=== PATIENT | female | born 1950 | race Caucasian/White ===

== ENCOUNTER → 2023-10-27 14:12 | Outpatient (REF) | payer BC, SELFPAY | LOC: WDC 14:12 | PROVIDERS: ATTENDING PHYSICIAN Nurse Practitioner Family | DX: Z12.31 Encounter for screening mammogram for malignant neoplasm of breast (principal); M81.0 Age-related osteoporosis without current pathological fracture | CPT/HCPCS: 77063; 77067; 77080 ==

== ENCOUNTER 2025-02-24 06:01 | Inpatient (IN) | payer BC, SELFPAY ==
[2025-02-23 23:06] VITALS: BP 145/95
[2025-02-23 23:31] VITALS: BMI 28.4
[2025-02-23 23:46] LABS: % Basophils 0.4 % (0-2); % Eosinophils 1.8 % (0-6); % Immature Granulocytes 0.5 % (0-0.5); % Lymphocytes 9.4 % (20.5-51.1); % Monocytes 9.3 % (1.7-9.3); % Neutrophils 78.6 % (42.2-75.2); Absolute Eosinophils 0.2 10^3/uL (0-0.7); Absolute Immature Granulocytes 0.1 10^3/uL (0-0.05); Absolute Neutrophils 8.3 10^3/uL (1.4-6.5); Hematocrit 36.1 % (37.0-47.0); Hemoglobin 12.5 g/dL (12.0-16.0); Mean Corp Hgb Conc. 34.6 g/dL (33.0-37.0); Mean Corpuscular Hgb 30.1 pg (27.0-31.0); Mean Platelet Volume 10.8 fL (7.4-10.4); Nucleated Red Blood Cells % 0 %; Platelet Count 192 10^3/uL (130-400); Red Blood Cell Count 4.15 10^6/uL (4.20-5.40); Red Cell Dist. Width 13.2 % (11.5-14.5); White Blood Cell Count 10.6 10^3/uL (4.8-10.8)
[2025-02-24] VITALS (44 sets, daily range): BP systolic 81–147; BP diastolic 54–125; BMI 27.8
[2025-02-24 00:06] LABS: ALT (SGPT) 123 U/L (0-35); AST (SGOT) 111 U/L (14-36); Albumin 3.3 g/dl (3.5-5.0); Alkaline Phosphatase 114 U/L (38-126); Blood Urea Nitrogen 21 mg/dl (7-17); Calcium 8.3 mg/dl (8.4-10.2); Carbon Dioxide 23 mmol/L (22-30); Chloride 108 mmol/L (98-107); Estimated Creatinine Clearance 67 ml/min; Glucose 113 mg/dl (70-99); Potassium 3.5 mmol/L (3.5-5.1); Sodium 139 mmol/L (135-145); Total Bilirubin 0.9 mg/dl (0.2-1.3); Total Protein 6.4 g/dl (6.3-8.2); eGFR > 60.00
--- NOTE | 2025-02-24 02:09 | ED.GENMED ---
History of Present Illness
<Eddie Chin, DO - Last Filed: 02/26/25 14:06>
General
Chief Complaint: Chest Pain
Source: patient
Exam Limitations: none
Time Seen by Provider: 02/24/25 01:52
History of Present Illness
History of Present Illness:
See MDM
Past History
<Eddie Chin, DO - Last Filed: 02/26/25 14:06>
Past History
ED Past Medical History: Psychiatric
ED Past Surgical History: Orthopedic
Social History
Tobacco: Non-smoker
Alcohol: None
Phy Exam
<Eddie Chin, DO - Last Filed: 02/26/25 14:06>
Physical Exam
Physical Exam:
See MDM
Scores
<Eddie Chin, DO - Last Filed: 02/26/25 14:06>
Heart Score for Chest Pain Patients
STEMI patient?: Not applicable
Course
<Eddie Chin, DO - Last Filed: 02/26/25 14:06>
Orders/Labs/Results
Orders:
Orders
02/23/25 23:17
EKG [Electrocardiogram (*1)] Urgent
Reason for Study: Shortness of Breath
EKG- Treatment ONCE
02/23/25 23:37
Complete Blood Count/With Diff Urgent
Comprehensive Metabolic Panel Urgent
NT-proBNP Urgent
Comment: ADD ON
Troponin I Urgent
02/24/25 02:08
Lorazepam [Ativan] 1 mg IV NOW STA
02/24/25 02:09
CT Chest PE Study Urgent
Comment:
Reason For Exam: SOB
02/24/25 02:28
Alprazolam [Xanax] 1 mg PO ONCE ONE
02/24/25 02:51
Add On- LAB Urgent
Tests Added?: BNP
02/24/25 04:41
Heparin 5,600 units IV NOW STA
Nursing to Place Non Medication Order As Directed
Physician Order: PTT 6 hours after initial start of Heparin infusion
Above order entered?: Yes
02/24/25 04:45
Heparin 85521 Units/250 ml 25,000 units in 250 ml IV PER PROTOCOL
Weight to be used for heparin protocol in kilograms (kg):: 70.3
Protocol:: DVT/PE
PTT Goal Range to be used:: PTT 73 to 111 seconds
Order type:: Initial
INITIAL Infusion Dose (UNITS/KG/hr) & then follow protocol:: 18 units/kg/hr
Infusion Dose in UNITS/hr & then follow protocol (UNITS/hr):: 1,300
INFUSION RATE in mL/hr & then follow protocol (mL/hr):: 13
For DVT/PE algorithm, re-bolus for low PTT?: Yes
PTT less than or equal to 64 seconds:: Re-bolus 80 units/kg (max 10,000units). Increase by 300 units/hr
(+ 3mL/hr)
PTT 64.1 to 72.9 seconds:: Re-bolus 40 units/kg (max 5,000 units). Increase by 100 units/hr
(+ 1mL/hr)
PTT 73 to 111 seconds:: Target Range. No change in rate.
PTT 111.1 to 130.9 seconds:: Decrease rate by 100 units/hr (- 1 mL/hr)
PTT 131 to 199.9 seconds:: HOLD for 1 hr. Then decrease by 200 units/hr (- 2mL/hr)
PTT greater than or equal to 200 seconds:: HOLD for 2 hrs & Notify Provider. Then decrease by 300 units/hr
(- 3mL/hr)
Lab follow-up:: Each change, PTT q6h until 2 consecutive are therapeutic. Then
PTT daily.
02/24/25 04:52
Heparin 5,600 units IV PRN PRN
02/24/25 04:53
Heparin 2,800 units IV PRN PRN
02/24/25 05:00
Flush (0.9% Sodium Chloride) [Flush (Nss)] See Dose Instructions IV PER PROTOCOL
02/24/25 05:10
Admit/Transfer Patient As Directed
Co-Sign Provider:
Level of Care: Inpatient admission
Assign to:: ICU
Physician / Group: Emeka
Diagnosis: PE
Reason for Hospitalization: PE
Expected length of stay greater than two midnights?: Yes
ELOS- Estimated Length of Stay in days: 3
I certify the patient meets the requirements for IP care: Yes
PRN Pain Medication Management As Directed
May give lesser potent ordered pain med per pt: Yes
preference::
Protocol:: Medication orders for pain may be administered in a
manner that supports deferring to patient preference
when the pt is:
- Requesting an ordered lesser potent pain medication.
Least to most potent pain medications are defined
as: acetaminophen < NSAID < tramadol < opioids
(morphine, oxycodone, hydromorphone).
- Requesting a lesser dose of the same medication IF
ORDERED.
- Requesting a less intrusive route of administration
if both routes are prescribed by the provider (PO <
IV).
02/24/25 05:11
Code Status As Directed
Resuscitation Status: Full Code
02/24/25 05:24
PTT Urgent
Comment: Obtain baseline before beginning heparin infusion if not already collected
Prothrombin Time Urgent
Comment: ADD ON
02/24/25 Breakfast
NPO
Allow oral meds: Yes
Allow clear liquids: Sips of Clears
02/24/25 06:18
0.9% Sodium Chloride 1000 ml [Nss] 1,000 ml IV 100 mls/hr
Acetaminophen [Tylenol] 650 mg PO Q4HPRN PRN
Alprazolam [Xanax] 1 mg PO Q6HPRN PRN anxiety
HYDROmorphone [Dilaudid] 0.5 mg IV Q4HPRN PRN
02/24/25 06:18
Echo 2D MMode Doppler [Echo 2D MMode Color/Doppler] Routine
Reason for Study: PE, Pleural Effusions
IRAD CONSULT Urgent
Consulting Provider: Igor Simms
Was physician already notified: Yes
Procedure being ordered, including laterality if applicable: PE Lysis
Acknowledgement that appropriate orders are entered: N/A
PULMONARY CONSULT Routine
Consulting Provider: Aden Conti
Was physician already notified: Yes
Reason for consult: PE
Heparin Protocol- PTT Orders As Directed
PTT per Heparin protocol: -Obtain CBC and baseline PTT - if not already collected.
-Obtain PTT 6 hours from start of infusion. Then, every 6 hours until 2 consecutive
PTT's are therapeutic. Then, PTT Daily.
-With each rate change, obtain PTT every 6 hours until 2 consecutive PTT's are
therapeutic. Then, PTT Daily.
Activity As Directed
Activity Level: Bedrest
EKG with chest pain [ECG as needed] As Directed
ECG as needed for:: Chest Pain
I/O [Intake/ Output] As Directed
Frequency: Per unit guidelines
Notify MD As Directed
Notify physician if: PTT is greater than or equal to 200.
Vital Signs As Directed
Frequency: Per unit guidelines
Weight As Directed
Frequency: Daily
Oxygen Therapy [O2 Therapy] [RESP] Routine
Titrate/Wean O2 to maintain O2 sat greater than (%): 94
02/24/25 06:41
TSH Reflex To Free T4 Routine
Troponin I Q6H
02/24/25 08:00
Pantoprazole [Protonix IV] 40 mg IV DAILY
02/24/25 12:41
Troponin I Q6H
02/24/25 17:34
Troponin I Q6H
02/25/25 05:36
Basic Metabolic Panel IN AM
02/25/25 05:37
Glycohemoglobin (HgbA1c) Routine
02/26/25 05:08
Complete Blood Count/No Diff Q2D
Comment: notify provider: Platelet count < 130,000 or decrease by 50% from baseline
02/28/25 06:00
Complete Blood Count/No Diff Q2D
Comment: notify provider: Platelet count < 130,000 or decrease by 50% from baseline
03/02/25 06:00
Complete Blood Count/No Diff Q2D
Comment: notify provider: Platelet count < 130,000 or decrease by 50% from baseline
03/04/25 06:00
Complete Blood Count/No Diff Q2D
Comment: notify provider: Platelet count < 130,000 or decrease by 50% from baseline
03/06/25 06:00
Complete Blood Count/No Diff Q2D
Comment: notify provider: Platelet count < 130,000 or decrease by 50% from baseline
03/08/25 06:00
Complete Blood Count/No Diff Q2D
Comment: notify provider: Platelet count < 130,000 or decrease by 50% from baseline
03/10/25 06:00
Complete Blood Count/No Diff Q2D
Comment: notify provider: Platelet count < 130,000 or decrease by 50% from baseline
03/12/25 06:00
Complete Blood Count/No Diff Q2D
Comment: notify provider: Platelet count < 130,000 or decrease by 50% from baseline
Abnormal Lab Results
02/23/25 02/24/25
23:37 05:24
RBC 4.15 L 10^6/uL
(4.20-5.40)
Hct 36.1 L %
(37.0-47.0)
MPV 10.8 H fL
(7.4-10.4)
Abs Immat Gran (auto) 0.1 H 10^3/uL
(0-0.05)
Absolute Neuts (auto) 8.3 H 10^3/uL
(1.4-6.5)
Absolute Lymphs (auto) 1.0 L 10^3/uL
(1.2-3.4)
Absolute Monos (auto) 1.0 H 10^3/uL
(0.1-0.6)
Neutrophils % 78.6 H %
(42.2-75.2)
Lymphocytes % 9.4 L %
(20.5-51.1)
PT 14.7 H Sec
(11.4-14.6)
Chloride 108 H mmol/L
(98-107)
BUN 21 H mg/dl
(7-17)
Glucose 113 H mg/dl
(70-99)
Calcium 8.3 L mg/dl
(8.4-10.2)
AST 111 H U/L
(14-36)
ALT 123 H U/L
(0-35)
Troponin I 0.040 H* ng/ml
Albumin 3.3 L g/dl
(3.5-5.0)
02/23/25 23:37
02/23/25 23:37
Vital Signs
Initial and Last Documented VS:
Initial Vital Signs
Temp Pulse Resp BP Pulse Ox
98.4 F 114 20 145/95 95
02/23/25 23:06 02/23/25 23:06 02/23/25 23:06 02/23/25 23:06 02/23/25 23:06
Last Documented Vital Signs
Temp Pulse Resp BP Pulse Ox
97.6 F 89 23 109/71 97
02/26/25 11:56 02/26/25 13:00 02/26/25 12:00 02/26/25 12:00 02/26/25 12:00
<Amina Bansal, DO - Last Filed: 02/24/25 06:55>
Orders/Labs/Results
Orders:
Orders
02/23/25 23:17
EKG [Electrocardiogram (*1)] Urgent
Reason for Study: Shortness of Breath
EKG- Treatment ONCE
02/23/25 23:37
Complete Blood Count/With Diff Urgent
Comprehensive Metabolic Panel Urgent
NT-proBNP Urgent
Comment: ADD ON
Troponin I Urgent
02/24/25 02:08
Lorazepam [Ativan] 1 mg IV NOW STA
02/24/25 02:09
CT Chest PE Study Urgent
Comment:
Reason For Exam: SOB
02/24/25 02:28
Alprazolam [Xanax] 1 mg PO ONCE ONE
02/24/25 02:51
Add On- LAB Urgent
Tests Added?: BNP
02/24/25 04:41
Heparin 5,600 units IV NOW STA
Nursing to Place Non Medication Order As Directed
Physician Order: PTT 6 hours after initial start of Heparin infusion
Above order entered?: Yes
02/24/25 04:45
Heparin 31155 Units/250 ml 25,000 units in 250 ml IV PER PROTOCOL
Weight to be used for heparin protocol in kilograms (kg):: 70.3
Protocol:: DVT/PE
PTT Goal Range to be used:: PTT 73 to 111 seconds
Order type:: Initial
INITIAL Infusion Dose (UNITS/KG/hr) & then follow protocol:: 18 units/kg/hr
Infusion Dose in UNITS/hr & then follow protocol (UNITS/hr):: 1,300
INFUSION RATE in mL/hr & then follow protocol (mL/hr):: 13
For DVT/PE algorithm, re-bolus for low PTT?: Yes
PTT less than or equal to 64 seconds:: Re-bolus 80 units/kg (max 10,000units). Increase by 300 units/hr
(+ 3mL/hr)
PTT 64.1 to 72.9 seconds:: Re-bolus 40 units/kg (max 5,000 units). Increase by 100 units/hr
(+ 1mL/hr)
PTT 73 to 111 seconds:: Target Range. No change in rate.
PTT 111.1 to 130.9 seconds:: Decrease rate by 100 units/hr (- 1 mL/hr)
PTT 131 to 199.9 seconds:: HOLD for 1 hr. Then decrease by 200 units/hr (- 2mL/hr)
PTT greater than or equal to 200 seconds:: HOLD for 2 hrs & Notify Provider. Then decrease by 300 units/hr
(- 3mL/hr)
Lab follow-up:: Each change, PTT q6h until 2 consecutive are therapeutic. Then
PTT daily.
02/24/25 04:52
Heparin 5,600 units IV PRN PRN
02/24/25 04:53
Heparin 2,800 units IV PRN PRN
02/24/25 05:00
Flush (0.9% Sodium Chloride) [Flush (Nss)] See Dose Instructions IV PER PROTOCOL
02/24/25 05:10
Admit/Transfer Patient As Directed
Co-Sign Provider:
Level of Care: Inpatient admission
Assign to:: ICU
Physician / Group: Emeka
Diagnosis: PE
Reason for Hospitalization: PE
Expected length of stay greater than two midnights?: Yes
ELOS- Estimated Length of Stay in days: 3
I certify the patient meets the requirements for IP care: Yes
PRN Pain Medication Management As Directed
May give lesser potent ordered pain med per pt: Yes
preference::
Protocol:: Medication orders for pain may be administered in a
manner that supports deferring to patient preference
when the pt is:
- Requesting an ordered lesser potent pain medication.
Least to most potent pain medications are defined
as: acetaminophen < NSAID < tramadol < opioids
(morphine, oxycodone, hydromorphone).
- Requesting a lesser dose of the same medication IF
ORDERED.
- Requesting a less intrusive route of administration
if both routes are prescribed by the provider (PO <
IV).
02/24/25 05:11
Code Status As Directed
Resuscitation Status: Full Code
02/24/25 05:24
PTT Urgent
Comment: Obtain baseline before beginning heparin infusion if not already collected
Prothrombin Time Urgent
Comment: ADD ON
02/24/25 Breakfast
NPO
Allow oral meds: Yes
Allow clear liquids: Sips of Clears
02/24/25 06:18
0.9% Sodium Chloride 1000 ml [Nss] 1,000 ml IV 100 mls/hr
Acetaminophen [Tylenol] 650 mg PO Q4HPRN PRN
Alprazolam [Xanax] 1 mg PO Q6HPRN PRN anxiety
HYDROmorphone [Dilaudid] 0.5 mg IV Q4HPRN PRN
02/24/25 06:18
Echo 2D MMode Doppler [Echo 2D MMode Color/Doppler] Routine
Reason for Study: PE, Pleural Effusions
IRAD CONSULT Urgent
Consulting Provider: Igor Simms
Was physician already notified: Yes
Procedure being ordered, including laterality if applicable: PE Lysis
Acknowledgement that appropriate orders are entered: N/A
PULMONARY CONSULT Routine
Consulting Provider: Aden Conti
Was physician already notified: Yes
Reason for consult: PE
Heparin Protocol- PTT Orders As Directed
PTT per Heparin protocol: -Obtain CBC and baseline PTT - if not already collected.
-Obtain PTT 6 hours from start of infusion. Then, every 6 hours until 2 consecutive
PTT's are therapeutic. Then, PTT Daily.
-With each rate change, obtain PTT every 6 hours until 2 consecutive PTT's are
therapeutic. Then, PTT Daily.
Activity As Directed
Activity Level: Bedrest
EKG with chest pain [ECG as needed] As Directed
ECG as needed for:: Chest Pain
I/O [Intake/ Output] As Directed
Frequency: Per unit guidelines
Notify MD As Directed
Notify physician if: PTT is greater than or equal to 200.
Vital Signs As Directed
Frequency: Per unit guidelines
Weight As Directed
Frequency: Daily
Oxygen Therapy [O2 Therapy] [RESP] Routine
Titrate/Wean O2 to maintain O2 sat greater than (%): 94
02/24/25 06:41
TSH Reflex To Free T4 Routine
Troponin I Q6H
02/24/25 08:00
Pantoprazole [Protonix IV] 40 mg IV DAILY
02/24/25 12:41
Troponin I Q6H
02/24/25 17:34
Troponin I Q6H
02/25/25 05:36
Basic Metabolic Panel IN AM
02/25/25 05:37
Glycohemoglobin (HgbA1c) Routine
02/26/25 05:08
Complete Blood Count/No Diff Q2D
Comment: notify provider: Platelet count < 130,000 or decrease by 50% from baseline
02/28/25 06:00
Complete Blood Count/No Diff Q2D
Comment: notify provider: Platelet count < 130,000 or decrease by 50% from baseline
03/02/25 06:00
Complete Blood Count/No Diff Q2D
Comment: notify provider: Platelet count < 130,000 or decrease by 50% from baseline
03/04/25 06:00
Complete Blood Count/No Diff Q2D
Comment: notify provider: Platelet count < 130,000 or decrease by 50% from baseline
03/06/25 06:00
Complete Blood Count/No Diff Q2D
Comment: notify provider: Platelet count < 130,000 or decrease by 50% from baseline
03/08/25 06:00
Complete Blood Count/No Diff Q2D
Comment: notify provider: Platelet count < 130,000 or decrease by 50% from baseline
03/10/25 06:00
Complete Blood Count/No Diff Q2D
Comment: notify provider: Platelet count < 130,000 or decrease by 50% from baseline
03/12/25 06:00
Complete Blood Count/No Diff Q2D
Comment: notify provider: Platelet count < 130,000 or decrease by 50% from baseline
Abnormal Lab Results
02/23/25 02/24/25
23:37 05:24
RBC 4.15 L 10^6/uL
(4.20-5.40)
Hct 36.1 L %
(37.0-47.0)
MPV 10.8 H fL
(7.4-10.4)
Abs Immat Gran (auto) 0.1 H 10^3/uL
(0-0.05)
Absolute Neuts (auto) 8.3 H 10^3/uL
(1.4-6.5)
Absolute Lymphs (auto) 1.0 L 10^3/uL
(1.2-3.4)
Absolute Monos (auto) 1.0 H 10^3/uL
(0.1-0.6)
Neutrophils % 78.6 H %
(42.2-75.2)
Lymphocytes % 9.4 L %
(20.5-51.1)
PT 14.7 H Sec
(11.4-14.6)
Chloride 108 H mmol/L
(98-107)
BUN 21 H mg/dl
(7-17)
Glucose 113 H mg/dl
(70-99)
Calcium 8.3 L mg/dl
(8.4-10.2)
AST 111 H U/L
(14-36)
ALT 123 H U/L
(0-35)
Troponin I 0.040 H* ng/ml
Albumin 3.3 L g/dl
(3.5-5.0)
02/23/25 23:37
02/23/25 23:37
Vital Signs
Initial and Last Documented VS:
Initial Vital Signs
Temp Pulse Resp BP Pulse Ox
98.4 F 114 20 145/95 95
02/23/25 23:06 02/23/25 23:06 02/23/25 23:06 02/23/25 23:06 02/23/25 23:06
Last Documented Vital Signs
Temp Pulse Resp BP Pulse Ox
97.6 F 89 23 109/71 97
02/26/25 11:56 02/26/25 13:00 02/26/25 12:00 02/26/25 12:00 02/26/25 12:00
<Eddie Chin, DO - Last Filed: 02/26/25 14:06>
MDM/Problems Addressed
Differential Diagnosis Includes:
HPI and MDM Narrative:
74-year-old female presenting for evaluation of shortness of breath and chest pressure with exertion. Patient initially thought this was related to recent physical therapy. When she exerts herself, she develops the symptoms but then feels as
though she is having a panic attack. When she takes her anxiety medicine, symptoms do improve somewhat. Blood work done prior to my assessment showing mild troponin elevation. Patient is tachycardic. Given her symptoms, will obtain CT PE. If CT
negative, will admit possible ACS
Physical exam
General: Well appearing and non-toxic
HEENT: protecting airway
Neck: appears supple
CV: No evidence of cyanosis. Tachycardic
Resp: No accessory muscle use
Abd: Non-distended
Extremities: No deformities. No tenderness to calf or thighs
Neuro: alert
Psych: Normal affect
Skin: Intact
Problems Addressed including Acute and Chronic Conditions affecting care:
1. Shortness of breath and chest pain with exertion
Acuity: acute
Prognosis: stable
Details: Given the tachycardia and symptoms, will obtain CT PE
2. [ ]
Acuity: acute
Prognosis: stable
Details:
3. [ ]
Acuity: acute
Prognosis: stable
Details:
4. [ ]
Acuity: acute
Prognosis: stable
Details:
5. [ ]
Acuity:
Prognosis:
Details:
Updates
Differential Diagnosis (but not limited to): Pulmonary embolism, acute coronary syndrome
Testing considered: Chest x-ray
Drug therapy (if applicable): OTC meds, please see d/c instruction regarding Rx drugs
Amount and/or Complexity of Data Reviewed
Clinical info obtained from: Patient
External data reviewed: N/A
Labs I independently reviewed (but not limited to): Elevated troponin
Radiology: N/A
Pulse Ox: not hypoxic
EKG independently reviewed: Sinus tachycardia, normal axis, no STEMI
Product Development: Sinus tachycardia
Critical Care: N/A
Risk of Complication:
Social Determinants of health: Good social support
Discussed with other providers: N/A
Escalation of Care includes Admit/Obs: After being observed in the Emergency Department, pt stable for discharge.
Occasional wrong word or 'sound a like' substitutions may have occurred due to the inherent limitations of voice recognition software. Read the chart carefully and recognize, using context, where substitutions have occurred.
<Amina Bansal DO - Last Filed: 02/24/25 06:55>
*Radiology
Radiology exam reviewed: radiology read reviewed
*Pulse Oximetry
Patient hypoxic: no
*Product Development Interpretation
Rate: normal
Interpretation: normal
Rhythm: sinus
*Critical Care Note
Total Time (30-74mins, 75-104mins- exclusive of procedures): 40
comment:
Critical care statement: A total of 40 minutes of critical care time was provided for this patient. This includes management of unstable vital signs, evaluation of the patient at bedside, reviewing the patient's pertinent medical records, discussion
with consultants, review of old EKGs and review of pertinent medical records. This time with separate from time utilized to perform the aforementioned documented procedures
<Amina Bansal, DO - Last Filed: 02/24/25 06:55>
Update Note
Update Note:
04:45
CAT scan shows large bilateral PEs with right heart strain as well as an element of CHF.
Patient remains hemodynamically stable. No dyspnea.
PERT alert initiated. Awaiting callback from chemist water purification as well as IR.
Will initiate IV heparin bolus and drip and admit to hospitalist service.
04:55
Case discussed with pulmonary. CT reviewed by chemist water purification. Moderate right heart and large central clot, recommends thrombectomy by IR.
05:00
IR aware
ED Attending Note
<Eddie Chin, DO - Last Filed: 02/26/25 14:06>
-
Portions of this chart may have been created with voice recognition software.� Occasional wrong word or��sound alike� substitutions may have occurred due to the inherent limitations of voice recognition software.
Discharge Plan
Departure
Patient Disposition: Admit
Date of Disposition: 02/24/25
Time of Disposition: 04:51
Admit to: ICU
Admit to doctor: Emeka
Presentation/result/management discussed w/ accepting MD/DO: Hospitalist
Condition: Serious
Discharge Problem:
Bilateral PE with right heart strain
Interventions
Interventions:
*General Assessment Last Done: 02/23/25 23:06
*Neglect/Abuse Screening Last Done: 02/23/25 23:06
*ED- Fall Risk Assessment Last Done: 02/24/25 01:36
*Nursing Disposition Last Done: 02/24/25 06:15
ED- Cardiac Assessment Last Done: 02/24/25 01:36
ED-Musculoskeletal Assessment Last Done: 02/24/25 01:36
ED-Psychological Assessment Last Done: 02/24/25 01:36
ED- Pulmonary Assessment Last Done: 02/24/25 01:36
Discharge Date and Time
Discharge Date/Time: 02/24/25 06:20
[2025-02-24] MEDS: XANAX 1 MG PO ×3 (02:33→20:33)
[2025-02-24 04:17] LABS: NT-proBNP 3530 pg/ml
--- NOTE | 2025-02-24 05:14 | HPS.HSE ---
Family Physician
-
Family Physician: TIMMY Hernandez
Chief Complaint
-
SOB
History of Present Illness
Patient is a 74y F with PMH significant for osteoporosis and DJD who presents to ED complaining of SOB. Patient describes recent issues with worsening b/l knee pain and gait dysfunction. She has been followed at [facility] and recently had steroid
injections. She states that she has been staying off of her feet and resting with heating pads for much of her time. One week ago, patient had an episode of palpitations / racing heartbeat. She thought that she must be having an anxiety attack.
She took a dose of alprazolam and her symptoms improved. Over the weekend, she developed pain in the L shoulder and in the R flank areas. This pain was quite severe at times and worse with deep breathing or movement.
Tonight, patient noted that she was short of breath with walking / climbing stairs and she presented to the ED for evaluation.
CT done in the ED shows pulmonary emboli.
Patient denies any prior history of VTE. No recent travel or surgery. No personal history of spontaneous .
She does states that she has a sister who had blood clots. Also has strong family history of colon cancer and lung cancer.
Medical History
Past Medical History
Past Medical History: Reports Other
Additional Past Medical History:
Osteoporosis
DJD
Generalized Anxiety
Past Surgical History: Reports Other
Additional Past Surgical History:
Shoulder Surgery
Sinus Surgery
Social History
Tobacco: Non-smoker
Alcohol: Occasional
Drug: None
Family History
Family History: Cancer (Colon, Lung) and Other (Sister: DVT / PE)
Allergies / Home Medications
Allergies reflects when Allergies were last updated in [facility].
Home Medications with original date entered in [facility]
Allergy/Medication List:
Allergies
Allergy/AdvReac Type Severity Reaction Status Date / Time
Penicillins Allergy Rash Verified 02/24/25 00:40
Home Medications
acetaminophen 500 mg tablet (Tylenol Extra Strength) 500 mg PO PRN PRN pain 08/25/18
alprazolam 1 mg tablet 2 mg PO BID PRN anxiety 08/25/18
aspirin 325 mg tablet 325 mg PO PRN PRN pain 08/25/18
calcium 315 mg (as citrate)-vitamin D3 6.25 mcg (250 unit) tablet (Citracal + Vitamin D Maximum) 1 ea PO BID 08/25/18
ibuprofen 200 mg tablet (Advil) 200 mg PO PRN PRN pain 08/25/18
multivitamin 1 ea PO DAILY 08/25/18
Review of Systems
-
History Source: Patient
A 12 point ROS was completed and negative except as noted: Yes
Constitutional: Reports Fatigue; Denies Fever or Chills
EENT: Denies Sore Throat
Respiratory: Reports Trouble Breathing; Denies Cough
Cardiac: Reports Palpitations; Denies Chest Pain or Syncope
Abdomen/GI: Denies Abdominal Pain, Nausea, Vomiting or Diarrhea
: Reports Flank Pain; Denies Dysuria
Musculoskeletal: Reports Joint Pain; Denies Edema
Neurological: Reports Weakness; Denies Dizzy or Headache
Psych: Denies Depression or Anxiety
Physical Exam
Vital Signs
Vital Signs
Temp Pulse Resp BP Pulse Ox
98.4 F 90 33 108/73 91
02/23/25 23:06 02/24/25 03:32 02/24/25 03:32 02/24/25 03:32 02/24/25 03:32
Physical Exam
General: Other (74y F in no acute distress. Somewhat restless appearing.)
HEENT: Moist mucous membranes and PERRLA
Respiratory: Other (Decreased at both bases.)
Cardiac: S1/S2 and Tachycardia; No Murmur
GI: Soft, Non Tender, Non Distended and Normal Bowel Sounds
Musculoskeletal: No Clubbing, No Cyanosis and Other (Asymmetry of LE with R > L. No calf tenderness.)
Neuro: AO x 3
Laboratory Results
-
02/23/25 23:37
02/23/25 23:37
Laboratory Results
Total Bilirubin 0.9 mg/dl (0.2-1.3) 02/23/25 23:37
AST 111 U/L (14-36) H 02/23/25 23:37
ALT 123 U/L (0-35) H 02/23/25 23:37
Alkaline Phosphatase 114 U/L (38-126) 02/23/25 23:37
Troponin I 0.040 ng/ml H* 02/23/25 23:37
Impression/Plan
-
A/P: Patient is a 74y F with PMH significant for osteoporosis and DJD who presents to ED complaining of SOB.
Submassive Pulmonary Embolism
Right Heart Strain secondary to the above
- Admit to ICU for further evaluation and treatment.
- Large R main thrombosis with evidence of RV strain. Smaller L sided PEs as well.
- IR contacted to evaluate for possible thrombectomy.
- IV heparin for now, supplemental O2, supportive care.
- IVFs support.
- Pulm / CC consulted for additional recommendations.
- Check Echo and LE dopplers in AM.
- Follow serial troponin.
- Follow for clinical improvement.
- This is an apparently unprovoked PE. Will require age-appropriate cancer screenings and further evaluation as an outpatient.
Abnormal LFTs
- Likely passive congestion secondary to R HF / heart strain due to PE.
- Check Echo as noted above.
- Follow for improvement.
Bilateral Pleural Effusions
- Unclear etiology. Echo as noted above.
- Would consider diagnostic / therapeutic thoracentesis after patient stabilized from PE perspective.
- Would hold on any diuresis for now given RV strain pattern / preload dependence.
Osteoporosis
DJD
- Recent complaints of LE weakness / bilateral knee pain.
- Continue pain control as needed.
- PT eval.
- Patient previously on Prolia for osteoporosis - but stopped this some time ago.
Generalized Anxiety
- Continue alprazolam PRN.
Code Status: Full
[2025-02-24] MEDS: HEPARIN 5600 UNITS IV (05:38)
[2025-02-24] MEDS: HEPARIN 25000 UNITS/250 ML IV (05:43)
--- NOTE | 2025-02-24 06:32 | PTCARENOTE ---
assumed care from ED, pt AAOx3, CURTIS, follows commands, anxious, c/o 3/10 middle back pain, sinus tach on the monitor, +pulses, +1 edema to LE, BP 95/79 map 87) lungs coarse B/L throughout, tachypneic, shallow breaths, BSx4 round, pt due to void made
aware of activity restrictions, skin dry and intact, wort on right great toe and bottom of heel on left foot, 20G RFA 20G Lwrist, NS 100ml, Hep 1300 units/13ml. call lantigua within reach, otherwise refer to documentation
[2025-02-24 07:11] LABS: PT 14.7 Sec (11.4-14.6)
--- NOTE | 2025-02-24 07:16 | CON.INTV ---
Consultation
Consultation Request
Date/Time Consultation Requested: 02/24/2025
Date/Time Consultation Performed: 02/24/2025
Requesting Provider: Patel Hendrickson
Performing Provider: Aden Conti
Reason for Consultation: Acute PE
Medical History
-
Chief Complaint: Shortness of breath
History of Present Illness:
Patient is a 74-year-old female who presented to the emergency room complaining of shortness of breath. Patient has known history of osteo arthritis and reports significant bilateral knee pain and ambulatory dysfunction. Recently had steroid
injections at [facility] and lately have been mostly resting and using heating pads. Reported episode of shortness of breath with palpitations about a week ago. She took a dose of Xanax and her symptoms tend to improve. Patient also reported some
bilateral pleuritic discomfort over the weekend. Today patient reported worsening shortness of breath even while walking and decided to present to the emergency room. CT scan was performed which showed bilateral pulmonary embolism and evidence of
right heart strain along with elevated BNP and troponin. PERT team was activated. Discussed case with the ER physician and recommended consideration for catheter directed therapy considering large clot burden, central thrombosis, evidence of right
heart strain along with elevated troponin elevated BNP and borderline blood pressure.
No prior known history of VTE event. No recent travel or major surgery requiring hospitalization.
Past Medical History: Reports Other
Additional Past Medical History:
Osteoporosis
DJD
Generalized Anxiety
Past Surgical History: Reports Other
Additional Past Surgical History:
Shoulder Surgery
Sinus Surgery
Social History
Tobacco: Non-smoker
Alcohol: Occasional
Drug: None
Family History
Family History: Cancer (Colon, Lung) and Other (Sister: DVT / PE)
Allergies / Home Medications
Allergies
Allergy/AdvReac Type Severity Reaction Status Date / Time
Penicillins Allergy Rash Verified 02/24/25 00:40
Home Medications
�Medication �Instructions �Recorded �Confirmed �Last Taken �Type
acetaminophen 500 mg tablet 500 mg PO PRN PRN pain 08/25/18 02/24/25 Unknown History
(Tylenol Extra Strength)
alprazolam 1 mg tablet 2 mg PO BID PRN anxiety 08/25/18 02/24/25 Unknown History
aspirin 325 mg tablet 325 mg PO PRN PRN pain 08/25/18 02/24/25 Unknown History
calcium 315 mg (as 1 ea PO BID 08/25/18 02/24/25 Unknown History
citrate)-vitamin D3 6.25 mcg (250
unit) tablet (Citracal + Vitamin D
Maximum)
ibuprofen 200 mg tablet (Advil) 200 mg PO PRN PRN pain 08/25/18 02/24/25 Unknown History
multivitamin 1 ea PO DAILY 08/25/18 02/24/25 Unknown History
Review of Systems
-
Hematologic/Lymphatic: Other (No new symptoms)
Vitals / Labs / Diagnostic Testing
Vital Signs
Temp Pulse Resp BP Pulse Ox
98.4 F 98 27 112/85 96
02/23/25 23:06 02/24/25 06:30 02/24/25 06:30 02/24/25 06:25 02/24/25 06:30
Lab Data
02/23/25 23:37
02/23/25 23:37
Laboratory Results
02/24/25
05:24
PT 14.7 H
INR 1.10
APTT 27.0
Diagnostic Testing:
Physical Exam
-
HEENT: Normocephalic
Cardiovascular: S1/S2
Respiratory: Clear and Non-Labored Respirations
GI: Soft and Non Distended
Neurology: Awake and Alert
Skin: Warm
General: Comfortable
Assessment
-
#1. Acute submassive pulmonary embolism
- Right heart strain noted, also elevated BNP and troponin. Blood pressure borderline.
- Currently on heparin drip
- PERT team activated, recommend IR guided catheter directed therapies. Await further input from IR service
- Continue to monitor in the ICU
- Avoid aggressive hydration in view of right heart strain
- Levophed as needed to keep MAP above 65
- Supplemental oxygen to keep saturation above 90 to 92%
- Check echocardiogram as well as lower extremity Dopplers
- Event appears to be unprovoked considering no recent travel, or hospitalization. Does report decreased mobility after steroid injection for osteoarthritis but this event warrants further workup particularly age-appropriate cancer screening.
- Mildly elevated AST and ALT, ? Venous hepatic congestion, monitor. Albumin is low normal and INR is normal at 1.1.
#2. B/L pleural effusions, right greater than left
- Unclear etiology, differential diagnosis include related to pulmonary embolism and also congestive heart failure
- Albumin is minimally decreased however BNP is elevated at 3530. Also mild groundglass opacities noted on imaging raising concern of possible concomitant congestive heart failure
- Avoid additional IV fluids, check echocardiogram
- Monitor closely in telemetry
- Depending upon her workup and clinical course might need thoracentesis for fluid evaluation but for now we will target treatment for acute PE
Other medical diagnoses:
- Generalized anxiety
- Osteoporosis
- Degenerative joint disease
- Osteoarthritis
Critical Care time 63 mins -- The patient is admitted for acute critical illness for the treatment of vital organ failure and/or prevention of further life-threatening conditions. Total care includes time spent in review of history, physical exam,
medications, hemodynamic/ventilator parameters, laboratory data, imaging and discussion with house staff, pharmacy, respiratory therapy, business mail entry clerk, and nursing.
[2025-02-24] MEDS: NSS 1000 IV (07:28)
[2025-02-24] MEDS: NSS (PRESERVATIVE FREE) 10 ML IV (07:28)
[2025-02-24] MEDS: PROTONIX IV 40 MG IV (07:28)
[2025-02-24 07:33] LABS: Troponin I 0.041 ng/ml
--- NOTE | 2025-02-24 08:24 | PTCARENOTE ---
Addendum entered by Lilia Keller RN 02/24/25 09:26:
patient attepmted to use bedpan, unable to void on bedpan. bladder scan 343
Original Note:
report received, assessments per work list. fluids d/c per denitrator operator. admission assessment completed. oriented to ICU, call lantigua in reach. patient anxious, sinus tachycardia. denies pain. dyspnea with exertion. orthopnea
[2025-02-24 08:47] LABS: TSH Reflex To Free T4 2.65 uIU/ml (0.47-4.68)
--- NOTE | 2025-02-24 09:40 | PTCARENOTE ---
Echo at bedside. moreland inserted. phone report to [facility]
--- NOTE | 2025-02-24 10:20 | PTCARENOTE ---
transport to [facility] without issue, handoff to IRAD RD
[2025-02-24 10:41] LABS: Magnesium 1.7 mg/dl (1.6-2.3); Phosphorus 3.5 mg/dl (2.5-4.5)
[2025-02-24] MEDS: CATHFLO/ACTIVASE 1000 MG INF CATH ×3 (11:32→20:33)
--- NOTE | 2025-02-24 12:06 | W.PN.IRAD.PR ---
Procedure Note
-
Post pulm arteriography, intravasc pressures, initiation thrombolysis infusion. Mean PA pressure 15 mmHg bilat. Angio in keeping with prev CTA. Catheter positioned R pulm artery. Alteplase 1 mg/hr via infusion catheter. Heparin 500 units/hr via PIV.
No sheath infusion-7 Fr catheter is occlusive in 7 Fr sheath.
[2025-02-24 12:53] LABS: Hematocrit 32.5 % (37.0-47.0); Mean Corp Hgb Conc. 33.8 g/dL (33.0-37.0); Mean Corpuscular Volume 88.6 fL (81.0-99.0); Platelet Count 195 10^3/uL (130-400); Red Blood Cell Count 3.67 10^6/uL (4.20-5.40); Red Cell Dist. Width 13.2 % (11.5-14.5); White Blood Cell Count 9.7 10^3/uL (4.8-10.8)
[2025-02-24 13:04] LABS: APTT 39.2 Sec (23.4-35.0)
--- NOTE | 2025-02-24 13:12 | W.PN.UPDATE ---
Update Note
Progress Note Update
Catheter directed tPA today
Follow-up echo toleration with Dopplers
Continue IV heparin
Hematology evaluation outpatient, age-appropriate cancer screening
Monitor LFTs, most likely congestive hepatopathy
In regards to pleural effusions, monitor, may need thoracentesis
[2025-02-24 13:20] LABS: Troponin I 0.038 ng/ml
--- NOTE | 2025-02-24 13:40 | PTCARENOTE ---
received back from [facility]. right fem sheath in place with alteplase infusing per orders. heparin via forearm IV @500 units. moreland draining yellow urine. received back on 4 liters cannula. patient instructed on activity restrictions per orders.
anxious. medicated with xanax per prn order. ultrasound LE to be completed tomorrow as patient unable to move legs
--- NOTE | 2025-02-24 14:26 | PTCARENOTE ---
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 immediately to patient bedside, legs straightened. restraint applied, right groin site intact, no changes in pulses. call
placed to IR[facility] to inform, spoke with irad rn who spoke with MD, orders received
--- NOTE | 2025-02-24 15:24 | CM ---
Patient out of room in the ICU with present seen at bedside. Patient states that he lives with his in a 2 story home. Patient was independent and working at [facility] [employer] [facility] [employer] prior to admission. Patient PCP is Dr. Chamorro from [facility] and she uses the [facility] in [place]. Per patient plan is for discharge home with no needs.
Plan; home with no need vs home with VN pending physician assessment
--- NOTE | 2025-02-24 17:45 | PTCARENOTE ---
received text from Dr Simms no issue with cxr. knee immobilizer and restraint for patient safety. right groin dressing dry and intact. +distal pulses, confirmed with Doppler. patient slept long period after Xanax. awake and oriented. forgetful.
patient with slight movements arms and head. per patient and spouse this is her baseline. labs sent. patient denies pain. safe environment maintained
[2025-02-24 17:47] LABS: Hematocrit 32.7 % (37.0-47.0); Hemoglobin 10.9 g/dL (12.0-16.0); Mean Corp Hgb Conc. 33.3 g/dL (33.0-37.0); Mean Corpuscular Volume 90.1 fL (81.0-99.0); Mean Platelet Volume 11.1 fL (7.4-10.4); Platelet Count 190 10^3/uL (130-400); Red Blood Cell Count 3.63 10^6/uL (4.20-5.40); Red Cell Dist. Width 13.3 % (11.5-14.5); White Blood Cell Count 9.5 10^3/uL (4.8-10.8)
[2025-02-24 17:54] LABS: INR 1.18; PT 15.5 Sec (11.4-14.6)
[2025-02-24 18:18] LABS: Troponin I 0.045 ng/ml
--- NOTE | 2025-02-24 21:00 | PTCARENOTE ---
Received pt resting in bed, AAOx3. Drowsy but easily arousable. Reports anxiety - PRN xanax given. Denies pain at this time. Must stay flat in bed for the night - pt educated. R knee immobilizer and ankle restraint in place to encourage pt to keep
leg straight. Hourly neurovasc checks ongoing - WNL at this time. R femoral sheath in place with TPA infusing per orders. R FA INT with heparin gtt at 500units/hr. SR on tele, HR 80-90s. BP 90-100/50-60. On 4L NC, spo2 95%. Lungs with crackles
bibasilar. + bowel sounds. NPO. Mitchell draining yellow urine - see I&O. Call lantigua in reach.
[2025-02-25] VITALS (40 sets, daily range): BP systolic 81–130; BP diastolic 50–103; BMI 28.3
[2025-02-25 00:29] LABS: INR 1.32; PT 16.9 Sec (11.4-14.6)
[2025-02-25 00:30] LABS: APTT 33.2 Sec (23.4-35.0)
[2025-02-25] MEDS: DILAUDID 0.5 MG IV (00:31)
[2025-02-25 00:34] LABS: Hematocrit 28.1 % (37.0-47.0); Hemoglobin 9.6 g/dL (12.0-16.0); Mean Corp Hgb Conc. 34.2 g/dL (33.0-37.0); Mean Corpuscular Hgb 30.5 pg (27.0-31.0); Mean Corpuscular Volume 89.2 fL (81.0-99.0); Mean Platelet Volume 11.3 fL (7.4-10.4); Platelet Count 177 10^3/uL (130-400); Red Blood Cell Count 3.15 10^6/uL (4.20-5.40); Red Cell Dist. Width 13.3 % (11.5-14.5); White Blood Cell Count 8.4 10^3/uL (4.8-10.8)
--- NOTE | 2025-02-25 01:07 | PTCARENOTE ---
Pt. resting mostly when undisturbed. C/O low back pain/stiffness from laying in bed all day - pt reports she feels like she needs to stand up and stretch. Re-educated on bedrest, pt understanding. PRN dilaudid given. Repeat labs sent.
--- NOTE | 2025-02-25 01:15 | PTCARENOTE ---
Hgb dropped from 10.9 to 9.6. Orders to contact [facility] precision dyer for Hgb drop >1gm. Dr Simms notified via phone. Orders to monitor for now. No s/s bleeding at this time.
[2025-02-25 05:50] LABS: Hematocrit 31.4 % (37.0-47.0); Hemoglobin 10.5 g/dL (12.0-16.0); Mean Corp Hgb Conc. 33.4 g/dL (33.0-37.0); Mean Corpuscular Hgb 30.3 pg (27.0-31.0); Mean Corpuscular Volume 90.5 fL (81.0-99.0); Mean Platelet Volume 10.8 fL (7.4-10.4); Platelet Count 177 10^3/uL (130-400); Red Blood Cell Count 3.47 10^6/uL (4.20-5.40); Red Cell Dist. Width 13.3 % (11.5-14.5); White Blood Cell Count 9.8 10^3/uL (4.8-10.8)
[2025-02-25 05:59] LABS: INR 1.43; PT 17.9 Sec (11.4-14.6)
[2025-02-25 06:00] LABS: APTT 36.6 Sec (23.4-35.0)
[2025-02-25 06:14] LABS: Blood Urea Nitrogen 13 mg/dl (7-17); Calcium 7.3 mg/dl (8.4-10.2); Carbon Dioxide 21 mmol/L (22-30); Chloride 112 mmol/L (98-107); Estimated Creatinine Clearance 78 ml/min; Glucose 66 mg/dl (70-99); Magnesium 1.7 mg/dl (1.6-2.3); Phosphorus 3.9 mg/dl (2.5-4.5); Potassium 3.4 mmol/L (3.5-5.1); Sodium 140 mmol/L (135-145); eGFR > 60.00
[2025-02-25] MEDS: CATHFLO/ACTIVASE 1000 MG INF CATH (06:27)
--- NOTE | 2025-02-25 07:15 | PTCARENOTE ---
Received patient from shift supervisor. patient is drowsy, arousable, AAOx3. present at bedside. She is on 4L, oxygen saturation 99%. Denies any SOB. She is sinus rhythm on monitor. pressure is low 100s/50s but MAP>65. She is NPO and has
moreland for urine. #7 right groin femoral sheath infusing TPA at 100ml/hr. Will review orders, awaiting time from IR for follow up PE study.
[2025-02-25] MEDS: NSS (PRESERVATIVE FREE) 10 ML IV (07:33)
[2025-02-25] MEDS: PROTONIX IV 40 MG IV (07:33)
--- NOTE | 2025-02-25 08:45 | PTCARENOTE ---
Spoke with IR. Patient's follow up study after noon today.
[2025-02-25 09:46] LABS: Glycohemoglobin (HgbA1c) 5.5 % (4.0-5.6)
[2025-02-25] MEDS: XANAX 0.25 MG PO (10:42)
[2025-02-25] MEDS: KCL ELIXIR 40 MEQ PO (10:42)
--- NOTE | 2025-02-25 11:48 | W.PN.INTV ---
Today's Communication / Plan
Recommendations
- f/u CXR in AM
- Wean oxygen as needed
- Once sheath removed, PT/OT evaluation
Assessment
-
Patient is a 74-year-old female who presented to the emergency room complaining of shortness of breath. Patient has known history of osteo arthritis and reports significant bilateral knee pain and ambulatory dysfunction. Recently had steroid
injections at [facility] and lately have been mostly resting and using heating pads. Reported episode of shortness of breath with palpitations about a week ago. She took a dose of Xanax and her symptoms tend to improve. Patient also reported some
bilateral pleuritic discomfort over the weekend. Today patient reported worsening shortness of breath even while walking and decided to present to the emergency room. CT scan was performed which showed bilateral pulmonary embolism and evidence of
right heart strain along with elevated BNP and troponin. PERT team was activated. Discussed case with the ER physician and recommended consideration for catheter directed therapy considering large clot burden, central thrombosis, evidence of right
heart strain along with elevated troponin elevated BNP and borderline blood pressure.
No prior known history of VTE event. No recent travel or major surgery requiring hospitalization.
02/25: Patient lying flat in the bed, no acute distress. Saturating 99% on 4 L supplemental oxygen. Afebrile, not needing any pressor support. Currently tPA infusing as well as heparin infusing.
#1. Acute submassive pulmonary embolism
- Right heart strain noted, also elevated BNP and troponin. Blood pressure borderline.
- Currently on heparin drip and tPA infusing
- PERT team was activated, s/p IR guided catheter directed thrombolysis 02/24, patient going back to IR suite for evaluation
- Continue to monitor in the ICU
- Avoid aggressive hydration in view of right heart strain
- Levophed as needed to keep MAP above 65
- Supplemental oxygen to keep saturation above 90 to 92%
- Event appears to be unprovoked considering no recent travel, or hospitalization. Does report decreased mobility after steroid injection for osteoarthritis but this event warrants further workup particularly age-appropriate cancer screening.
- Mildly elevated AST and ALT, ? Venous hepatic congestion, monitor. Albumin is low normal and INR is normal.
#2. B/L pleural effusions, right greater than left
- Appear to have improved on follow-up chest x-ray on 02/24. Patient lying flat without any shortness of breath.
- Unclear etiology, differential diagnosis include related to pulmonary embolism and also congestive heart failure
- Albumin is minimally decreased however BNP was elevated at 3530. Also mild groundglass opacities noted on imaging raising concern of possible concomitant congestive heart failure
- Avoid additional IV fluids
- Monitor closely in telemetry
- Depending upon her workup and clinical course might need thoracentesis for fluid evaluation but for now we will target treatment for acute PE
- F/u CXR in AM.
Other medical diagnoses:
- Generalized anxiety
- Osteoporosis
- Degenerative joint disease
- Osteoarthritis
Critical Care time 53 mins -- The patient is admitted for acute critical illness for the treatment of vital organ failure and/or prevention of further life-threatening conditions. Total care includes time spent in review of history, physical exam,
medications, hemodynamic/ventilator parameters, laboratory data, imaging and discussion with house staff, pharmacy, respiratory therapy, specification manager, and nursing.
Subjective Dataa
Subjective Data
Date of Service:
Date of Service: February 25, 2025
Subjective:
Patient comfortably lying flat in bed, no acute distress.
Review of Systems
Genitourinary: Other (Reports backache due to lying in the bed. All 14 systems reviewed and negative except as stated above in the history of present illness.)
Objective Data
Data Reviewed
Vital Signs / I&O / Oxygen:
Vital Signs
Temp Pulse Resp BP Pulse Ox
99.7 F 91 29 98/58 95
02/25/25 11:09 02/25/25 10:30 02/25/25 10:30 02/25/25 10:30 02/25/25 10:30
Intake and Output
02/24/25 02/25/25 02/26/25
06:59 06:59 06:59
Intake Total 2101 / 2206 420 / 420
Output Total 1140 / 1215 180 / 180
Balance 962 / 992 240 / 240
SaO2 95
Nasal Cannula flow liters per 4
minute
Physical Exam
General: Comfortable
HEENT: Normocephalic
Cardiovascular: S1-S2
Respiratory: Clear and Non-Labored Respirations
GI: Soft and Non Distended
Neurology: Awake and Alert
Skin: Warm
Labs/Micro/Reports
Lab Data
02/25/25 05:36
Laboratory Results
02/24/25 02/24/25 02/25/25
12:41 17:34 00:06
PT 15.5 H 16.9 H
INR 1.18 1.32
APTT 39.2 H 29.0 33.2
02/25/25
05:36
PT 17.9 H
INR 1.43
APTT 36.6 H
[2025-02-25 12:21] LABS: Hematocrit 29.5 % (37.0-47.0); Hemoglobin 9.8 g/dL (12.0-16.0); Mean Corp Hgb Conc. 33.2 g/dL (33.0-37.0); Mean Corpuscular Hgb 29.9 pg (27.0-31.0); Mean Corpuscular Volume 89.9 fL (81.0-99.0); Mean Platelet Volume 10.8 fL (7.4-10.4); Platelet Count 170 10^3/uL (130-400); Red Blood Cell Count 3.28 10^6/uL (4.20-5.40); Red Cell Dist. Width 13.2 % (11.5-14.5); White Blood Cell Count 9.6 10^3/uL (4.8-10.8)
[2025-02-25 12:32] LABS: INR 1.33; PT 16.7 Sec (11.4-14.6)
[2025-02-25 12:33] LABS: APTT 27.6 Sec (23.4-35.0)
--- NOTE | 2025-02-25 12:44 | PTCARENOTE ---
Took patient to IR for PE study follow up on monitor. hand off completed with RN
--- NOTE | 2025-02-25 14:18 | W.PN.UPDATE ---
Update Note
Progress Note Update
- PE lysis check with completion of therapy
- Repeat imaging of R PA shows modest angiographic improvement with persistent non-occlusive central thrombus
- Repeat pressures checked without significant change compared to prior (28/4 mm hg).
- Subjectively, patient states that she is feeling better, though hard to say given bedrest
- Infusion stopped and catheter removed.
- Bedrest for two hours, ok to restart heparin/ac per primary
[2025-02-25] MEDS: HEPARIN 25000 UNITS/250 ML IV (14:33)
--- NOTE | 2025-02-25 14:34 | W.PN.HOSP.TC ---
Addendum entered and electronically signed by Waylon Amador MD 02/25/25 17:13:
Pulmonary embolism with Acute Cor pulmonale
Original Note:
Today's Communication/Plan
-
Eliquis tomorrow morning
Sheath removed
CXR in AM
Transfer to Tele
Assessment / Plan
Assessment / Plan
Physical Exam
General: Other (74y F in no acute distress. lyign flat)
HEENT: Moist mucous membranes and PERRLA
Respiratory: Other (Decreased at both bases.)
Cardiac: S1/S2 and Tachycardia; No Murmur
GI: Soft, Non Tender, Non Distended and Normal Bowel Sounds
Musculoskeletal: No Clubbing, No Cyanosis and Other (Asymmetry of LE with R > L. No calf tenderness.)
Neuro: AO x 3
A/P: Patient is a 74y F with PMH significant for osteoporosis and DJD who presents to ED complaining of SOB.
Acute hypoxic respiratory failure
Submassive Pulmonary Embolism
Right Heart Strain secondary to the above
- Catheter directed tPA/5�sheath removed 02/25
�Continue heparin drip
�Transition to Eliquis tomorrow morning
� Echo with no severe RV strain
- This is an apparently unprovoked PE. Will require age-appropriate cancer screenings and further evaluation as an outpatient.
� Follow-up outpatient pulmonary
Abnormal LFTs
- Likely congestive hepatopathy
- Monitor with resuscitation
Hypokalemia
� Monitor and replete
Bilateral Pleural Effusions
- Unclear etiology. Echo as noted above.
- Would hold on any diuresis
- F/u CXR in AM
Osteoporosis
DJD
- Recent complaints of LE weakness / bilateral knee pain.
- Continue pain control as needed.
- PT eval.
- Patient previously on Prolia for osteoporosis - but stopped this some time ago.
Generalized Anxiety
- Continue alprazolam PRN.
Code Status: Full
Anticipated Discharge: 24 - 48 hours
Subjective/Interval History
-
Date of Service: February 25, 2025
No acute events, slightly lethargic/sedated this morning on Xanax
Objective Data
-
Labs:
Laboratory Results
02/25/25 02/25/25 02/25/25
05:36 05:37 12:10
WBC 9.8 9.6
Hgb 10.5 L 9.8 L
Hct 31.4 L 29.5 L
Plt Count 177 170
PT 17.9 H 16.7 H
INR 1.43 1.33
APTT 36.6 H 27.6
Sodium 140
Potassium 3.4 L
Chloride 112 H
Carbon Dioxide 21 L
BUN 13
Creatinine 0.6
Glucose 66 L
Calcium 7.3 L
02/25/25
18:00
WBC Cancelled
Hgb Cancelled
Hct Cancelled
Plt Count Cancelled
PT Cancelled
INR Cancelled
APTT Cancelled
Sodium
Potassium
Chloride
Carbon Dioxide
BUN
Creatinine
Glucose
Calcium
Vital Signs:
Vital Signs
Temp Pulse Resp BP Pulse Ox
99.6 F 96 20 101/64 96
02/25/25 12:40 02/25/25 14:02 02/25/25 14:02 02/25/25 14:02 02/25/25 14:02
I&O
02/24/25 02/25/25 02/26/25
06:59 06:59 06:59
Intake Total 2102 / 2207 630 / 630
Output Total 1140 / 1215 315 / 315
Balance 962 / 992 315 / 315
Review of Systems
-
History Source: Patient
All other systems: Not reviewed unless documented
Data Reviewed
-
CT Scan: Report Reviewed by me
Labs: Labs Reviewed by me
--- NOTE | 2025-02-25 15:08 | PTCARENOTE ---
Sat patient up to 30%,. patient has ordered lunch. regular diet ordered and tele status ordered.
--- NOTE | 2025-02-25 16:31 | CM ---
Discharge POC: Await therapy evaluation and recommendation.
--- NOTE | 2025-02-25 16:33 | PN.CDI ---
CDI
- -
CDI:
Physician Documentation Request
Admit Date: 02/24/25 06:01
Dear Doctor Perry,
Please review the following and provide your response in the progress notes.
Clinical Indicators:
Pt admitted with submassive PE /pleural effusion / Acute Hypoxic Respiratory Failure
Documented per H&P and Progress note 02/25, ' Submassive Pulmonary EmbolismRight Heart Strain secondary to the above...'
ECHO 02/24 ,' Estimated pulmonary artery pressure of 35-40 mmHg.'
Please provide a diagnosis for the above findings:
Pulmonary embolism with Acute Cor pulmonale
Pulmonary Embolism only
Other ( please specify)
Use of terms such as suspected, likely, concern for, or probable (associated with a specific diagnosis that is being evaluated, monitored, or treated as if it exists) are acceptable and can be coded in the inpatient setting, when documented at the
time of discharge.
Thank you,
Marlyn Rivero RN
CDI Specialist
[place] [facility]
Please use your independent medical judgment in providing your response.
[2025-02-25 22:00] LABS: APTT 156.6 Sec (23.4-35.0)
[2025-02-26] VITALS (19 sets, daily range): BP systolic 82–127; BP diastolic 58–87; PULSE 99; O2SAT 95
[2025-02-26 05:27] LABS: Hematocrit 29.5 % (37.0-47.0); Hemoglobin 9.7 g/dL (12.0-16.0); Mean Corp Hgb Conc. 32.9 g/dL (33.0-37.0); Mean Corpuscular Hgb 29.3 pg (27.0-31.0); Mean Corpuscular Volume 89.1 fL (81.0-99.0); Mean Platelet Volume 10.7 fL (7.4-10.4); Platelet Count 192 10^3/uL (130-400); Red Blood Cell Count 3.31 10^6/uL (4.20-5.40); Red Cell Dist. Width 13.3 % (11.5-14.5); White Blood Cell Count 9.6 10^3/uL (4.8-10.8)
[2025-02-26 05:33] LABS: APTT 42.5 Sec (23.4-35.0)
[2025-02-26] MEDS: HEPARIN 5600 UNITS IV (06:04)
[2025-02-26 06:11] LABS: Blood Urea Nitrogen 11 mg/dl (7-17); Calcium 7.8 mg/dl (8.4-10.2); Carbon Dioxide 24 mmol/L (22-30); Chloride 110 mmol/L (98-107); Estimated Creatinine Clearance 78 ml/min; Glucose 96 mg/dl (70-99); Magnesium 1.8 mg/dl (1.6-2.3); Potassium 4.1 mmol/L (3.5-5.1); Sodium 139 mmol/L (135-145); eGFR > 60.00
[2025-02-26] MEDS: PROTONIX IV 40 MG IV (08:21)
[2025-02-26] MEDS: NSS (PRESERVATIVE FREE) 10 ML IV (08:22)
[2025-02-26] MEDS: FLUSH (NSS) 1 FLUSH IV (08:22)
--- NOTE | 2025-02-26 09:00 | PTCARENOTE ---
Rec'd pt at 0730 sleeping. Awakens easily to verbal stimuli and is alert and oriented. Does tend to get sl anxious and worries about the clots in her R leg moving. Aware that she is starting on ELiquis today. Speech is clear. CURTIS. Skin is pink wm
and dry. R groin dressing is D+I. No swelling or bruising noted. Respirs are overall unlabored on 4L nc. BS are sl decreased at the bases otherwise clear. Sats are 95%. Monitor SR. + pulses. +1 R LE edema. Does admit to some intermittent R chest
achiness. Abd is soft with + BS. States she does not have much of an appetite. Denies nausea. Mitchell intact- draining yellow urine. Rec'd pt on IV Heparin at 1400 units/hr via R forearm IV Site. Heparin gtt dc'd at 0830 with plan to give Eliquis at
0930. Repositioned. Call lantigua in reach. Plan of care reviewed with pt and pts who is at the bedside.
--- NOTE | 2025-02-26 09:17 | W.PN.PUL3 ---
Today's Communication / Plan
-
- CT abdomen pelvis for further evaluation considering large lower extremity DVT with iliac involvement
- Wean oxygen as tolerated, increase activity as tolerated
- Transition to Eliquis p.o., outpatient follow-up with pulmonary clinic
Assessment
-
Patient is a 74-year-old female who presented to the emergency room complaining of shortness of breath. Patient has known history of osteo arthritis and reports significant bilateral knee pain and ambulatory dysfunction. Recently had steroid
injections at [facility] and lately have been mostly resting and using heating pads. Reported episode of shortness of breath with palpitations about a week ago. She took a dose of Xanax and her symptoms tend to improve. Patient also reported some
bilateral pleuritic discomfort over the weekend. Today patient reported worsening shortness of breath even while walking and decided to present to the emergency room. CT scan was performed which showed bilateral pulmonary embolism and evidence of
right heart strain along with elevated BNP and troponin. PERT team was activated. Discussed case with the ER physician and recommended consideration for catheter directed therapy considering large clot burden, central thrombosis, evidence of right
heart strain along with elevated troponin elevated BNP and borderline blood pressure.
No prior known history of VTE event. No recent travel or major surgery requiring hospitalization.
#1. Acute submassive pulmonary embolism
- Right heart strain noted, also elevated BNP and troponin. Blood pressure stable
- PERT team was activated, s/p IR guided catheter directed thrombolysis 02/24- 02/25
- Transition back to anticoagulation, heparin switched to Eliquis.
- Continue to wean O2
#2. Large right lower extremity DVT.
- Extensive iliac vein involvement noted
- CT abdomen pelvis for further evaluation for any underlying mass lesion or compression of IVC
#2. B/L pleural effusions, right greater than left
- Appear to have improved on follow-up chest x-ray today. Patient lying flat without any shortness of breath.
- Unclear etiology, differential diagnosis include related to pulmonary embolism and also congestive heart failure
- Albumin is minimally decreased however BNP was elevated at 3530. Also mild groundglass opacities noted on imaging raising concern of possible concomitant congestive heart failure
- Avoid additional IV fluids
- Monitor closely in telemetry
- Depending on patient's blood pressure, will consider gentle diuresis
Other medical diagnoses:
- Generalized anxiety
- Osteoporosis
- Degenerative joint disease
- Osteoarthritis
Discussed with patient's spouse at bedside
Total time spent on this consultation/encounter _48___ minutes which includes review of history, physical exam, medications, laboratory data, personal review of imaging, extensive review of outpatient records, discussion with care team and
respiratory therapy.
Subjective Data
-
Date of Service:
Date of Service: February 26, 2025
Subjective:
Patient comfortably lying in bed in no acute distress.
Review of Systems
Genitourinary: Other (No new symptoms reported)
Objective Data
Data Reviewed
Vital Signs / I&O / Oxygen:
Vital Signs
Temp Pulse Resp BP Pulse Ox
99.0 F 85 27 94/63 96
02/26/25 00:48 02/26/25 06:00 02/26/25 06:00 02/26/25 06:00 02/26/25 06:00
Intake and Output
02/25/25 02/26/25 02/27/25
06:59 06:59 06:59
Intake Total 2102 / 2207 812 / 812
Output Total 1140 / 1215 765 / 765
Balance 962 / 992 47 / 47
SaO2 96
Nasal Cannula flow liters per 4
minute
Physical Exam
General: Comfortable
HEENT: Normocephalic
Cardiovascular: S1-S2 and Peripheral Edema (R> L)
Respiratory: Clear and Non-Labored Respirations
GI: Soft and Non Distended
Neurology: Awake and Alert
Skin: Warm
Labs/Micro/Reports
Lab Data
02/26/25 05:08
02/26/25 05:44
Laboratory Results
02/25/25 02/25/25 02/25/25
12:10 18:00 21:33
PT 16.7 H Cancelled
INR 1.33 Cancelled
APTT 27.6 Cancelled 156.6 H*
02/26/25
05:08
PT
INR
APTT 42.5 H
[2025-02-26] MEDS: XANAX 0.25 MG PO (09:31)
[2025-02-26] MEDS: ELIQUIS 10 MG PO ×2 (09:31→20:26)
--- NOTE | 2025-02-26 09:35 | PTCARENOTE ---
Eliquis given (Per Dr. Zaldivar wanted to wait 1 hr after Heparin gtt stopped). Pt made NPO for CT scan. Somewhat anxious and tearful at the thought of having a CT scan of the abd and worrying that she might have cancer. Support given. Xanax 0.25
mg po given to help relax pt. Call lantigua in reach.
[2025-02-26] MEDS: OMNIPAQUE 50 ML PO (10:07)
--- NOTE | 2025-02-26 10:15 | PTCARENOTE ---
Oral CT contrast started. Mitchell removed at 0945 and PT and OT here to work with pt and assisted pt oob to the chair. at the bedside
--- NOTE | 2025-02-26 12:03 | W.PN.HOSP.TC ---
Today's Communication/Plan
-
Transition to Eliquis this morning
CT imaging to evaluate any iliac involvement
May need to evaluate pleural effusions
Assessment / Plan
Assessment / Plan
Physical Exam
General: Other (74y F in no acute distress. lyign flat)
HEENT: Moist mucous membranes and PERRLA
Respiratory: Other (Decreased at both bases.)
Cardiac: S1/S2 and Tachycardia; No Murmur
GI: Soft, Non Tender, Non Distended and Normal Bowel Sounds
Musculoskeletal: No Clubbing, No Cyanosis and Other (Asymmetry of LE with R > L. No calf tenderness.)
Neuro: AO x 3
A/P: Patient is a 74y F with PMH significant for osteoporosis and DJD who presents to ED complaining of SOB.
Acute hypoxic respiratory failure
Submassive Pulmonary Embolism
Right Heart Strain secondary to the above
Occlusive thrombus of the right lower extremity including right femoral, popliteal, peroneal and posterior tibial veins
- Catheter directed tPA/5�sheath removed 02/25
� Heparin drip transition to Eliquis this morning
� Echo with no severe RV strain
- This is an apparently unprovoked PE. Will require age-appropriate cancer screenings and further evaluation as an outpatient. Assess CT abdomen pelvis
� Follow-up outpatient pulmonary
� Wean O2 as tolerated, anticipate will have to go on oxygen
� CT imaging to evaluate any iliac involvement
Abnormal LFTs
- Likely congestive hepatopathy
- Monitor with resuscitation
Hypokalemia
� Monitor and replete
Bilateral Pleural Effusions
- Unclear etiology. Echo as noted above.
- Would hold on any diuresis, especially with lower blood pressures
- X-ray of pleural effusions, may need to get thoracentesis
Osteoporosis
DJD
- Recent complaints of LE weakness / bilateral knee pain.
- Continue pain control as needed.
- PT eval.
- Patient previously on Prolia for osteoporosis - but stopped this some time ago.
Generalized Anxiety
- Continue alprazolam PRN.
Code Status: Full
Anticipated Discharge: 24 - 48 hours
Subjective/Interval History
-
Date of Service: February 26, 2025
No acute events overnight
Objective Data
-
Labs:
Laboratory Results
02/26/25 02/26/25 02/26/25
05:08 05:44 12:00
WBC 9.6
Hgb 9.7 L
Hct 29.5 L
Plt Count 192
APTT 42.5 H Pending
Sodium 139
Potassium 4.1
Chloride 110 H
Carbon Dioxide 24
BUN 11
Creatinine 0.6
Glucose 96
Calcium 7.8 L
Vital Signs:
Vital Signs
Temp Pulse Resp BP Pulse Ox
97.6 F 85 22 92/76 96
02/26/25 11:56 02/26/25 07:30 02/26/25 07:30 02/26/25 07:30 02/26/25 10:00
I&O
02/25/25 02/26/25 02/27/25
06:59 06:59 06:59
Intake Total 2102 / 2207 812 / 826 135 / 135
Output Total 1140 / 1215 765 / 765 110 / 110
Balance 962 / 992 47 / 61
Review of Systems
-
History Source: Patient
All other systems: Not reviewed unless documented
Data Reviewed
-
CT Scan: Report Reviewed by me
Labs: Labs Reviewed by me
--- NOTE | 2025-02-26 12:30 | PTCARENOTE ---
Pt has tolerated sitting oob in the chair. Does have an occasional dry hacky cough. VS as documented. Has tolerated 2L nc with sats of 95-97%- wanted to keep O2 on as she states it makes her feel more comfortable. Assisted to the bathroom to and pt
stated she voided a small amt of urine. Also had a mod amt of loose bautista stool. Pt finished all of her CT contrast and currently taken for a CT of the ABd as ordered.
--- NOTE | 2025-02-26 13:15 | PTCARENOTE ---
Back in room post CT scan. in the room. Pt for tele -will transfer after pt eats lunch. No other changes.
--- NOTE | 2025-02-26 14:45 | PTCARENOTE ---
Pt at 75% of lunch. Report called to 4 [facility]- pt to go to [facility]. Taken via wheelchair. Prior to transferring pt used the bathroom for mod amt of urine and mod amt of loose bautista stool. Cami care given.
--- NOTE | 2025-02-26 15:21 | PTCARENOTE ---
Received report from Yelena in ICU. Pt arrived to room 406-1 at 1455. Pt AAOx3, describing a general achiness of right side- denying need for pain medication at this time. SHERIDAN- improving. Bandaid CDI to right groin site. SR on telemetry, HR 90s. See
shift assessment for further detail. Oriented pt and to rm, call lantigua, reporting concerns, etc. Call lantigua within reach.
[2025-02-26] MEDS: FLUSH (NSS) 2 FLUSH IV (20:27)
[2025-02-27] VITALS (7 sets, daily range): BP systolic 97–115; BP diastolic 56–70; BMI 28.6
[2025-02-27 06:51] LABS: Hematocrit 28.5 % (37.0-47.0); Hemoglobin 9.7 g/dL (12.0-16.0); Mean Corpuscular Hgb 29.9 pg (27.0-31.0); Mean Platelet Volume 11.2 fL (7.4-10.4); Platelet Count 226 10^3/uL (130-400); Red Blood Cell Count 3.24 10^6/uL (4.20-5.40); Red Cell Dist. Width 13.2 % (11.5-14.5); White Blood Cell Count 8.5 10^3/uL (4.8-10.8)
[2025-02-27 07:01] LABS: ALT (SGPT) 57 U/L (0-35); AST (SGOT) 30 U/L (14-36); Albumin 2.4 g/dl (3.5-5.0); Alkaline Phosphatase 80 U/L (38-126); Blood Urea Nitrogen 8 mg/dl (7-17); Calcium 7.6 mg/dl (8.4-10.2); Carbon Dioxide 23 mmol/L (22-30); Chloride 108 mmol/L (98-107); Estimated Creatinine Clearance 78 ml/min; Glucose 93 mg/dl (70-99); Potassium 3.8 mmol/L (3.5-5.1); Sodium 136 mmol/L (135-145); Total Bilirubin 0.9 mg/dl (0.2-1.3); Total Protein 4.9 g/dl (6.3-8.2); eGFR > 60.00
[2025-02-27] MEDS: ELIQUIS 10 MG PO ×2 (09:14→21:34)
[2025-02-27] MEDS: PROTONIX IV 40 MG IV (09:15)
[2025-02-27] MEDS: FLUSH (NSS) 2 FLUSH IV (09:15)
[2025-02-27] MEDS: NSS (PRESERVATIVE FREE) 10 ML IV (09:15)
--- NOTE | 2025-02-27 09:28 | VATNOTE ---
Attempted to assess pt's IVs at this time, pt appeared unhappy that I was there and asked that I come back later. Will return when possible.
--- NOTE | 2025-02-27 10:46 | W.PN.HOSP.TC ---
Today's Communication/Plan
-
see A/P
Assessment / Plan
Assessment / Plan
HPI: 74 yo F with PMH significant for osteoporosis and DJD who presented to with SOB.
A/P:
# Acute hypoxic respiratory insufficiency
# Submassive Pulmonary Embolism
# Right Heart Strain secondary to the above
# Occlusive thrombus of the right lower extremity including right femoral, popliteal, peroneal and posterior tibial veins
s/p Catheter directed tPA, sheath removed 02/25
Heparin drip transitioned to Eliquis 10mg BID for 7 days, then 5 mg BID for at least 3 months
Echo with no severe RV strain
Apparently unprovoked PE. Will require age-appropriate cancer screenings and further evaluation as an outpatient.
Pt informed her sister had PE before (?family history of VTE). Recc outpt heme eval for hypercoagulable work up, informed pt and .
CT Chest did not note lung mass/nodule, CT AP unrevealing.
Per pt, last mammogram WNL and pt denies to DUB
Cont 2L NC, wean as tolerated , check walking pulse Ox for home O2 need prior to DC
# Abnormal LFTs
Likely congestive hepatopathy
Improving
# Hypokalemia
Monitor and replete
# Small Bilateral Pleural Effusions, ?related to PE
Echo as noted above.
Would hold on any diuresis, especially with lower blood pressures
Pt would like to check BL chest US prior to formal CS to IR
# Osteoporosis
# DJD
Recent complaints of LE weakness / bilateral knee pain.
Continue pain control as needed.
PT recc HH
Patient previously on Prolia for osteoporosis - but stopped this some time ago.
# Generalized Anxiety
Continue alprazolam PRN.
Code Status: Full
Dispo: HH per PT
DW at bedside
total time spent 51 min
Anticipated Discharge: 24 - 48 hours
Subjective/Interval History
-
Date of Service: February 27, 2025
Objective Data
-
Labs:
Laboratory Results
02/27/25
05:39
WBC 8.5
Hgb 9.7 L
Hct 28.5 L
Plt Count 226
Sodium 136
Potassium 3.8
Chloride 108 H
Carbon Dioxide 23
BUN 8
Creatinine 0.6
Glucose 93
Calcium 7.6 L
Total Bilirubin 0.9
AST 30
ALT 57 H
Alkaline Phosphatase 80
Vital Signs:
Vital Signs
Temp Pulse Resp BP Pulse Ox
36.5 C 77 16 102/70 89
02/27/25 07:38 02/27/25 07:38 02/27/25 07:38 02/27/25 07:38 02/27/25 09:15
I&O
02/26/25 02/27/25 02/28/25
06:59 06:59 06:59
Intake Total 812 / 826 1435 / 1435
Output Total 765 / 765 110 / 110
Balance 47 / 61 1325 / 1325
Review of Systems
-
History Source: Patient
Physical Exam
-
General: Well Developed, Well Nourished, Comfortable, Respiratory Distress (mild) and Conversant
HEENT: Normocephalic, Atraumatic, Nose Appears Normal, Ears Appear Normal and Oxygen (2L NC)
Respiratory: Clear to Auscultation and Non Labored Respirations; Negative Accessory Resp Muscle Use
Cardiac: Regular Rhythm and S1/S2
GI: Soft, Nontender, Nondistended and Normal Bowel Sounds
Skin: Warm and Dry
Neuro: Awake, Alert and Oriented
Psych: Calm and Intact Judgement/Insight
Data Reviewed
-
CT Scan: Report Reviewed by me, Discussed with Patient and Discussed with Family
Labs: Labs Reviewed by me
--- NOTE | 2025-02-27 13:00 | W.PN.PUL3 ---
Today's Communication / Plan
-
- Continue Eliquis
- Monitor oxygen saturation at rest as well as with activity
- Discharge planning
- Outpatient follow-up with pulmonary and hematology service
Assessment
-
Patient is a 74-year-old female who presented to the emergency room complaining of shortness of breath. Patient has known history of osteo arthritis and reports significant bilateral knee pain and ambulatory dysfunction. Recently had steroid
injections at [facility] and lately have been mostly resting and using heating pads. Reported episode of shortness of breath with palpitations about a week ago. She took a dose of Xanax and her symptoms tend to improve. Patient also reported some
bilateral pleuritic discomfort over the weekend. Today patient reported worsening shortness of breath even while walking and decided to present to the emergency room. CT scan was performed which showed bilateral pulmonary embolism and evidence of
right heart strain along with elevated BNP and troponin. PERT team was activated. Discussed case with the ER physician and recommended consideration for catheter directed therapy considering large clot burden, central thrombosis, evidence of right
heart strain along with elevated troponin elevated BNP and borderline blood pressure.
No prior known history of VTE event. No recent travel or major surgery requiring hospitalization.
#1. Acute submassive pulmonary embolism, unprovoked
- Right heart strain noted, also elevated BNP and troponin. Blood pressure stable
- PERT team was activated, s/p IR guided catheter directed thrombolysis 02/24- 02/25
- Transition back to anticoagulation, heparin switched to Eliquis.
- Continue to wean O2, down to 2 L now
- Needs lifelong anticoagulation considering unprovoked event and the severity of pulmonary embolism. Outpatient follow-up with hematology service
#2. Large right lower extremity DVT.
- CT abdomen pelvis Without any mass lesion, small amount of clot noted in IVC
- Continue anticoagulation
#2. B/L pleural effusions, right greater than left
- Appear to have improved on follow-up chest x-ray today. Patient lying flat without any shortness of breath.
- Effusions are likely related to underlying pulmonary embolism.
- Blood pressure is borderline hence avoiding diuresis
- Check oxygen saturation with activity. If patient stable from respiratory standpoint, we can monitor the effusions as outpatient with serial x-rays and consider thoracentesis if needed
- If patient becomes symptomatic, then will favor IR guided thoracentesis on the right side without interrupting anticoagulation
Other medical diagnoses:
- Generalized anxiety
- Osteoporosis
- Degenerative joint disease
- Osteoarthritis
Discussed with patient's spouse at bedside
Total time spent on this consultation/encounter _46___ minutes which includes review of history, physical exam, medications, laboratory data, personal review of imaging, extensive review of outpatient records, discussion with care team and
respiratory therapy.
Subjective Data
-
Date of Service:
Date of Service: February 27, 2025
Subjective:
Comfortably sitting in chair, currently on 2 L supplemental oxygen
Review of Systems
Genitourinary: Other (No new complaints)
Objective Data
Data Reviewed
Vital Signs / I&O / Oxygen:
Vital Signs
Temp Pulse Resp BP Pulse Ox
98.1 F 88 16 97/64 94
02/27/25 11:03 02/27/25 11:03 02/27/25 11:03 02/27/25 11:03 02/27/25 11:03
Intake and Output
02/26/25 02/27/25 02/28/25
06:59 06:59 06:59
Intake Total 812 / 826 1435 / 1435
Output Total 765 / 765 110 / 110
Balance 47 / 61 1325 / 1325
SaO2 94
Nasal Cannula flow liters per 2
minute
Physical Exam
General: Comfortable
HEENT: Normocephalic
Cardiovascular: S1-S2 and Peripheral Edema (R> L)
Respiratory: Clear and Non-Labored Respirations
GI: Soft and Non Distended
Neurology: Awake and Alert
Skin: Warm
Labs/Micro/Reports
Lab Data
02/27/25 05:39
02/27/25 05:39
Laboratory Results
02/26/25
15:33
APTT Cancelled
--- NOTE | 2025-02-27 17:30 | PTCARENOTE ---
Pt concerned about loose stool x 2 (small amount), that she had, and that the loose stool was related to Eliquis. Stool mixed with urine so unable to hemetest. Stool was not watery/diarrhea. Stool was light brown in color, no overt sign of blood.
Updated Dr. Murray about pt's concern and confirmed that Eliquis would not cause loose stools. Order was placed for C.Diff, Norovirus, Culture.
Discussed with Estefani, nursing dining service supervisor, re. placing pt on Enhanced Precautions. Holding off on placing on Enhanced, pt moved to rm [id number]. Pt had a very small BM, soft/loose, but again mixed with urine so unable to send specimen.
[2025-02-27] MEDS: XANAX 0.25 MG PO (18:24)
--- NOTE | 2025-02-27 23:30 | PTCARENOTE ---
O2 sat 88% on RA. No obvious distress. O2 applied @ 2L. POX 92%
[2025-02-28 03:13] VITALS: BP 117/62
[2025-02-28 06:00] VITALS: BMI 28.5
--- NOTE | 2025-02-28 06:00 | PTCARENOTE ---
Had 1 sml soft unformed stool in BR. Mixed w/urine; unable to send specimen.
[2025-02-28 07:48] VITALS: BP 113/70
--- NOTE | 2025-02-28 08:20 | W.PN.HOSP.TC ---
Addendum entered and electronically signed by Arline Murray MD 02/28/25 13:53:
total DC time 45 minutes
Original Note:
Today's Communication/Plan
-
see A/P
CM to set up home O2 for night time use (pt OK with self pay)
Assessment / Plan
Assessment / Plan
HPI: 74 yo F with PMH significant for osteoporosis and DJD who presented to with SOB.
A/P:
# Acute hypoxic respiratory insufficiency
# Submassive Pulmonary Embolism
# Right Heart Strain secondary to the above
# Occlusive thrombus of the right lower extremity including right femoral, popliteal, peroneal and posterior tibial veins
s/p Catheter directed tPA, sheath removed 02/25
Heparin drip transitioned to Eliquis 10mg BID for 7 days, then 5 mg BID for at least 3 months
Echo with no severe RV strain
Apparently unprovoked PE. Will require age-appropriate cancer screenings and further evaluation as an outpatient.
Pt informed that her sister had PE before (?family history of VTE). Recc outpt heme eval for hypercoagulable work up, informed pt and .
CT Chest did not note lung mass/nodule, CT AP unrevealing.
Per pt, last mammogram WNL and pt denies to DUB
Weaned off O2 support and walking pulse did not show need for home O2, however according to pt, she desat at night. Pt would like to go home instead of staying another day for nocturnal pulse Ox assessment. Will ask CM to help set up home O2 for
night time use (pt Ok to self pay).
# Abnormal LFTs
Likely congestive hepatopathy
Improving
# Hypokalemia
Monitor and replete
# Small Bilateral Pleural Effusions, ?related to PE
Echo as noted above.
Would hold on any diuresis, especially with lower blood pressures
Pt would like to check BL chest US prior to formal CS to IR
# Osteoporosis
# DJD
Recent complaints of LE weakness / bilateral knee pain.
Continue pain control as needed.
PT recc HH
Patient previously on Prolia for osteoporosis - but stopped this some time ago.
# Generalized Anxiety
Continue alprazolam PRN.
Code Status: Full
Dispo: HH per PT
DW at bedside extensively.
total time spent 51 min
Anticipated Discharge: Today
Subjective/Interval History
-
Date of Service: February 28, 2025
Objective Data
-
Labs:
Laboratory Results
02/28/25
07:40
Sodium Pending
Potassium Pending
Chloride Pending
Carbon Dioxide Pending
BUN Pending
Creatinine Pending
Glucose Pending
Calcium Pending
Total Bilirubin Pending
AST Pending
ALT Pending
Alkaline Phosphatase Pending
Vital Signs:
Vital Signs
Temp Pulse Resp BP Pulse Ox
36.7 C 90 18 113/70 92
02/28/25 07:48 02/28/25 07:48 02/28/25 07:48 02/28/25 07:48 02/28/25 07:48
I&O
02/27/25 02/28/25 03/01/25
06:59 06:59 06:59
Intake Total 1435 / 1435 840 / 840
Output Total 110 / 110
Balance 1325 / 1325 840 / 840
Review of Systems
-
History Source: Patient
Physical Exam
-
General: Well Developed, Well Nourished, Comfortable, Respiratory Distress (mild) and Conversant
HEENT: Normocephalic, Atraumatic, Nose Appears Normal, Ears Appear Normal and Oxygen (2L NC)
Respiratory: Clear to Auscultation and Non Labored Respirations; Negative Accessory Resp Muscle Use
Cardiac: Regular Rhythm and S1/S2
GI: Soft, Nontender, Nondistended and Normal Bowel Sounds
Skin: Warm and Dry
Neuro: Awake, Alert and Oriented
Psych: Calm and Intact Judgement/Insight
Data Reviewed
-
CT Scan: Report Reviewed by me, Discussed with Patient and Discussed with Family
Labs: Labs Reviewed by me
[2025-02-28 08:38] LABS: ALT (SGPT) 57 U/L (0-35); AST (SGOT) 34 U/L (14-36); Albumin 2.8 g/dl (3.5-5.0); Alkaline Phosphatase 75 U/L (38-126); Blood Urea Nitrogen 10 mg/dl (7-17); Calcium 8.2 mg/dl (8.4-10.2); Carbon Dioxide 26 mmol/L (22-30); Chloride 107 mmol/L (98-107); Direct Bilirubin 0.2 mg/dl (0.0-0.4); Estimated Creatinine Clearance 78 ml/min; Glucose 100 mg/dl (70-99); Potassium 3.8 mmol/L (3.5-5.1); Sodium 140 mmol/L (135-145); Total Bilirubin 0.8 mg/dl (0.2-1.3); Total Protein 5.8 g/dl (6.3-8.2); eGFR > 60.00
[2025-02-28] MEDS: PROTONIX IV 40 MG IV (09:29)
[2025-02-28] MEDS: NSS (PRESERVATIVE FREE) 10 ML IV (09:29)
[2025-02-28] MEDS: ELIQUIS 10 MG PO (09:29)
--- NOTE | 2025-02-28 10:21 | CM ---
entered order for discharge.
Spoke with pt she said her Andriy will drive her home today.
Offered VN she requested VN Liaison Bettye notified.
Pt had home oxygen test she does not qualify for home oxygen.
Pt requested home oxygen . she said she will pay for home oxygen .
PLAN Home with VN
[2025-02-28 10:27] VITALS: PULSE 97; O2SAT 94
--- NOTE | 2025-02-28 10:59 | W.PN.PUL3 ---
Today's Communication / Plan
-
Doing well, remains stable on RA
Tolerating Eliquis
CT/ECHO stable
Effusions will likely resolve as well, can follow up OP imaging
We reviewed OP pulm FU
Discharge planning per team
Assessment
-
Patient is a 74-year-old female who presented to the emergency room complaining of shortness of breath. Patient has known history of osteo arthritis and reports significant bilateral knee pain and ambulatory dysfunction. Recently had steroid
injections at [facility] and lately have been mostly resting and using heating pads. Reported episode of shortness of breath with palpitations about a week ago. She took a dose of Xanax and her symptoms tend to improve. Patient also reported some
bilateral pleuritic discomfort over the weekend. Today patient reported worsening shortness of breath even while walking and decided to present to the emergency room. CT scan was performed which showed bilateral pulmonary embolism and evidence of
right heart strain along with elevated BNP and troponin. PERT team was activated. Discussed case with the ER physician and recommended consideration for catheter directed therapy considering large clot burden, central thrombosis, evidence of right
heart strain along with elevated troponin elevated BNP and borderline blood pressure.
No prior known history of VTE event. No recent travel or major surgery requiring hospitalization.
Acute submassive pulmonary embolism, unprovoked
Large right lower extremity DVT.
B/L pleural effusions, right greater than left
Other medical diagnoses:
- Generalized anxiety
- Osteoporosis
- Degenerative joint disease
- Osteoarthritis
Plan
Stable on RA, no new complaints
No known lung disease at baseline, no prior VTE
CT imaging reviewed, submassive
Right heart strain noted, also elevated BNP and troponin. Blood pressure stable
PERT team was activated, s/p IR guided catheter directed thrombolysis 02/24- 02/25
Transition back to anticoagulation, heparin switched to Eliquis.
Consideration for lifelong anticoagulation considering unprovoked event and the severity of pulmonary embolism.
She did have prior sedentary lifestyle post ortho issues/WFH could be provoked
Outpatient follow-up with hematology service
CT abdomen pelvis Without any mass lesion, small amount of clot noted in IVC
Continue anticoagulation
Appear to have improved on follow-up chest x-ray today. Patient lying flat without any shortness of breath.
Effusions are likely related to underlying pulmonary embolism
Blood pressure is borderline hence avoiding diuresis
Check oxygen saturation with activity. If patient stable from respiratory standpoint, we can monitor the effusions as outpatient with serial x-rays and consider thoracentesis if needed
Chest US with effusions that appear small
Encouraged OOB, PT/OT eval
Discussed with patient's spouse at bedside
Can assess for d/c planning and outpatient pulmonary FU
Diagnostic Data
ECHO 02/24/25- Left ventricular ejection fraction is 60-65%, by visual assessment. Wall motion is consistent with conduction abnormality. Normal right ventricular size and function. Mild to moderate aortic regurgitation.
Mild to moderate tricuspid regurgitation. Estimated pulmonary artery pressure of 35-40 mmHg. No prior study available for comparison.
CT AP 02/26/25- Findings suggestive of mild IVC thrombus formation as described above. Haziness about the right groin likely due to known right common femoral vein DVT. Mild air in the bladder. This can be seen with recent instrumentation. If there
is no such history, infection should be considered. Mild free fluid in the pelvis. Etiology unknown. Moderate right and small left pleural effusions. Moderate right lower lobe and mild left lower lobe consolidation probably atelectasis. Pneumonia
not excluded
CT Chest 02/24/25- There is satisfactory opacification of the pulmonary arterial distribution. Evaluation of subsegmental levels in some segmental levels is significantly limited by respiratory motion artifact. Regardless, there is pulmonary embolism
with significantly higher burden of thrombus on the right as compared with the left. Nonocclusive thrombus in distal right main pulmonary artery. There is nonocclusive thrombus in right upper lobar artery with extension into segmental branches,
nonocclusive. There is nonocclusive thrombus in the interlobar artery distal to the takeoff of upper lobe. Occlusive thrombus in branch to lateral right middle lobe and nonocclusive thrombus in branch to medial right middle lobe. Nonocclusive
thrombus in right lower lobar artery with extension into segmental branches, largely nonocclusive. On the left, no clear emboli in the upper lobe. Nonocclusive thrombus in lower lobar artery with extension into basal segmental branches,
nonocclusive. Right ventricle is somewhat enlarged, near the same size as the left ventricle. There is however no abnormal flattening of the intraventricular septum. No clear abnormal dilation of the main pulmonary artery, 2.9 cm diameter.
Lungs: Lung volumes are low. There are respiratory motion artifacts. There are bilateral pleural effusions, small on the right and very small on the left. There is adjacent compressive atelectasis. There is some interstitial edema increased
interstitial opacity including thickening of the fissures and some thickening of the interalveolar septae. Small area of consolidation in the lateral posterior right middle lobe which could be atelectatic, early change of infarction not definitively
excluded (image #[id number] series [phone]).
Total time spent on this consultation/encounter __51__ minutes which includes review of history, physical exam, medications, laboratory data, personal review of imaging, extensive review of outpatient records, discussion with care team and
respiratory therapy.
Subjective Data
-
Date of Service:
Date of Service: February 28, 2025
Chief Complaint: Pulmonary Follow Up
Subjective:
No new complaints, SOB improving
at bedside
Stable on RA
Objective Data
Data Reviewed
Vital Signs / I&O / Oxygen:
Vital Signs
Temp Pulse Resp BP Pulse Ox
98.1 F 90 18 113/70 92
02/28/25 07:48 02/28/25 07:48 02/28/25 07:48 02/28/25 07:48 02/28/25 08:00
Intake and Output
02/27/25 02/28/25 03/01/25
06:59 06:59 06:59
Intake Total 1435 / 1435 840 / 840 480 / 480
Output Total 110 / 110
Balance 1325 / 1325 840 / 840 480 / 480
SaO2 92
Nasal Cannula flow liters per 2
minute
Physical Exam
General: Comfortable and Good Appetite
HEENT: Normocephalic, Anicteric and Moist Mucous Membranes
Cardiovascular: S1-S2, Regular Rhythm and Peripheral Edema (R> L)
Respiratory: Clear and Non-Labored Respirations
GI: Soft and Non Distended
Neurology: Awake, Alert, Oriented and No Motor Deficits
Skin: Warm, Dry and Good Color
Labs/Micro/Reports
Lab Data
02/27/25 05:39
02/28/25 07:40
[2025-02-28 11:45] VITALS: BP 110/70
--- NOTE | 2025-02-28 11:45 | VNURNOTE ---
Home Health Liaison met with patient and spouse at bedside to discuss [facility] nurse/therapy, visits, schedule and homebound status. Patient is agreeable and understands that visits at home will be 2-3 x per week to assess and teach medical management.
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 She is planning on taking off work for a few weeks to recuperate. Per notes, did not qualify for home 02. Patient is requesting to pay out of pocket for home 02 at HS. Hospitalist aware. 2Lpm at HS verified and
noted on DME info. Reviewed out of pocket cost. Patient will contact DME co to arrange payment and delivery. Rep [facility] aware of DC today.
Patient has not seen PCP in about 3 years. Explained that [facility] can see her once she sees PCP or once seen by [facility]. Patient chooses to see her PCP and will call to move up appt. Patient and spouse are aware that [facility] will contact them
for start of care a few days after discharge from once seen by PCP.
Nocturnal O2- Faxed pt's facesheet to Apolin[employer] at [employer]: fax [phone]/ provided pt with rep's cell phone: [phone]
[facility] referral completed in [facility].
--- NOTE | 2025-02-28 12:36 | W.DCSUMMARY ---
Discharge Summary
Discharge Data
Date of Admission: 02/24/25
Date of Discharge: 02/28/25
-
Pending Results: No
Hospital Course
Principal Diagnosis:
Acute hypoxic respiratory insufficiency due to submassive pulmonary embolism (PE) with right heart strain.
Occlusive thrombus of the right lower extremity including right femoral, popliteal, peroneal and posterior tibial veins
Small Bilateral Pleural Effusions, suspect related to PE
Chronic Diagnoses:�
Osteoporosis
DJD
Generalized Anxiety, on alprazolam PRN.
Consultations:�
Pulmonary
Procedures:�
Catheter directed tPA for submassive pulmonary embolism, sheath removed 02/25
Clinical course:�
This is a 74-year-old female with past medical history as stated above, who presented with shortness of breath.
Problem 1:
Acute hypoxic respiratory insufficiency due to submassive pulmonary embolism with right heart strain.
This was associated with occlusive thrombus of the right lower extremity including right femoral, popliteal, peroneal and posterior tibial veins.
The patient underwent catheter directed tPA on admission, with sheath removed on 02/25.
She remained subjectively short of breath, although her walking pulse ox did not reveal need for home O2. Home O2 had nonetheless been set up through self-pay.
The patient was initially treated with heparin drip, and this was transitioned to Eliquis 10 mg twice daily for 7 days, followed by 5 mg twice daily until further directed by outpatient auto transmission technician/tack cutter.
Her CT chest did not reveal any lung mass/nodule, and her CT abdomen/pelvis was also unrevealing.
She has been informed to follow-up with hematology outpatient for hypercoagulable workup.
Problem 2:
Small Bilateral Pleural Effusions, suspect related to PE.
She can follow-up with pulmonary outpatient for this.
As for the rest of her medical problems, they were stable during her hospital stay.
Discharge Plan
-
Patient Disposition: Home with Home Care
Discharge Diagnosis/Procedures: Acute hypoxic respiratory insufficiency due to Submassive Pulmonary Embolism (with Right Heart Strain);
Abnormal LFTs likely congestive hepatopathy (improved);
Small Bilateral Pleural Effusions related to PE
Condition: Fair
Diet: As tolerated
Activity: As tolerated
Driving Restrictions: As prior to admission
Blood Work: CBC and CMP in 1 week, result to PCP
Activity Restrictions/Additional Instructions:
Follow up with auto transmission technician for hypercoagulable work up
Referrals:
Heather Taylor CRNP [Family Provider, Internal Medicine] - in less than 1 week
Aden Conti MD [Active, Pulmonary Medicine] - in four to six weeks
Additional Discharge Medication Instructions: Take Eliquis 10 mg twice daily for 5 more days, then 5 mg twice daily going forward (at least 3 months)
Avoid high dose ASA and NSAID while on Eliquis
Prescriptions:
New
Eliquis 5 mg tablet
5 mg PO BID Qty: 120 0RF
Rx Instructions:
10 mg twice daily for 5 more days, then 5 mg twice daily going forward (at least 3 months)
Continued
multivitamin 1 EACH tablet
1 ea PO DAILY
acetaminophen [Tylenol Extra Strength] 500 MG tablet
500 mg PO PRN PRN (Reason: pain)
calcium citrate-vitamin D3 [Citracal + D Maximum] 1 EACH tablet
1 ea PO BID
alprazolam 0.25 mg Tablet
0.25 mg PO BIDPRN PRN (Reason: anxiety)
Patient Comments:
02/24/25: Per [place] [employer], last filled 10/29/23 alprazolam 0.25mg tabs, #30 for 30 days
Discontinued
aspirin 325 MG tablet
325 mg PO PRN PRN (Reason: pain)
ibuprofen [Advil] 200 MG tablet
200 mg PO PRN PRN (Reason: pain)
Discharge Orders:
Discharge Patient (As Directed); Ordered 06/09/25
Ordered By: Arline Murray
Discharge Date and Time
Print Language: EGYPTIAN
== END 2025-02-28 14:46 | disposition home health service (06) | DRG 175 ==
LOC: 4 EAST ACU 06:01
PROVIDERS: Internal Medicine; Nurse Practitioner Family; Nurse Practitioner Gerontology; Nurse Practitioner Primary Care; Radiology Vascular & Interventional Radiology; ADMITTING PHYSICIAN Hospitalist; ATTENDING PHYSICIAN Internal Medicine; CONSULT PHYSICIAN Internal Medicine; EMERGENCY PHYSICIAN Emergency Medicine; FAMILY PHYSICIAN Nurse Practitioner Family
PROC: B31S1ZZ Fluoroscopy of Right Pulmonary Artery using Low Osmolar Contrast (ICD-10-PCS; 2025-02-24)
PROC: B31T1ZZ Fluoroscopy of Left Pulmonary Artery using Low Osmolar Contrast (ICD-10-PCS; 2025-02-24)
PROC: 3E06317 Introduction of Other Thrombolytic into Central Artery, Percutaneous Approach (ICD-10-PCS; 2025-02-24)
PROC: 4A033B3 Measurement of Arterial Pressure, Pulmonary, Percutaneous Approach (ICD-10-PCS; 2025-02-24)
DX: I26.09 Other pulmonary embolism with acute cor pulmonale (principal); J96.01 Acute respiratory failure with hypoxia; J90 Pleural effusion, not elsewhere classified; I82.411 Acute embolism and thrombosis of right femoral vein; I82.431 Acute embolism and thrombosis of right popliteal vein; I82.451 Acute embolism and thrombosis of right peroneal vein; I82.441 Acute embolism and thrombosis of right tibial vein; M81.0 Age-related osteoporosis without current pathological fracture; M19.90 Unspecified osteoarthritis, unspecified site; M25.561 Pain in right knee; F41.1 Generalized anxiety disorder; E87.6 Hypokalemia; K76.1 Chronic passive congestion of liver; M25.562 Pain in left knee; R26.9 Unspecified abnormalities of gait and mobility; Z80.0 Family history of malignant neoplasm of digestive organs; Z80.1 Family history of malignant neoplasm of trachea, bronchus and lung; Z82.49 Family history of ischemic heart disease and other diseases of the circulatory system; Z88.0 Allergy status to penicillin
CPT/HCPCS: 36014; 37211; 37214; 71045; 71275; 74177; 75743; 76604; 76937; 80048; 80053; 82248; 83036; 83735; 83880; 84100; 84443; 84484; 85025; 85027; 85610; 85730; 86850; 86900; 86901; 93005; 93306; 93970; 97116; 97163; 97167; 97530; 99152; 99153; C1769; J2997; Q9967

== ENCOUNTER → 2025-03-30 16:10 | Outpatient (REF) | payer BC, SELFPAY | LOC: HWRAD 16:10 | PROVIDERS: ATTENDING PHYSICIAN Internal Medicine; FAMILY PHYSICIAN Family Medicine | DX: J90 Pleural effusion, not elsewhere classified (principal) | CPT/HCPCS: 71046 ==

== ENCOUNTER → 2025-08-02 14:12 | Outpatient (REF) | payer MEDICARE, BC, SELFPAY | LOC: RAD 14:12 | PROVIDERS: ATTENDING PHYSICIAN Internal Medicine; FAMILY PHYSICIAN Family Medicine | DX: Z86.718 Personal history of other venous thrombosis and embolism (principal); I26.99 Other pulmonary embolism without acute cor pulmonale | CPT/HCPCS: 93970 ==

== ENCOUNTER → 2025-08-16 13:51 | Outpatient (REF) | payer MEDICARE, BC, SELFPAY | LOC: RCS 13:51 | PROVIDERS: ATTENDING PHYSICIAN Internal Medicine; FAMILY PHYSICIAN Family Medicine; OTHER PHYSICIAN Internal Medicine Hematology & Oncology | DX: I26.99 Other pulmonary embolism without acute cor pulmonale (principal) | CPT/HCPCS: 93306 ==